=== PATIENT | male | born 1975 | race Two or more races ===

== ENCOUNTER 2018-07-30 17:03 | Emergency (ER) | payer MEDICARE, MEDICAID ==
--- NOTE | 2018-07-30 17:11 | ER Report ---
History and Physical Time Seen By MD: 17:11 HPI/ROS CHIEF COMPLAINT: Alcoholism, abdominal pain HISTORY OF PRESENT ILLNESS: 42-year-old male patient presents to emergency room with complaint of alcoholism. Patient states he is looking to be admitted to behavioral health unit as he can work on quitting drinking his alcohol. Patient states he's done this in the past and the longest that he was sober was for years. He states that he started drinking again because of his at that time. Patient states that he has been having epigastric abdominal pain for the past 2 and half days. States the pain is significant in the upper abdomen. Patie nt states the pain is almost intolerable. He states that he is not been able to do anything to make the pain better or worse. Patient states he's been drinking heavily for the past several months. REVIEW OF SYSTEMS: Respiratory: No cough, no dyspnea. Cardiovascular: No chest pain, no palpitations. Gastrointestinal: As noted above Musculoskeletal: No back pain. Allergies: Coded Allergies: No Known Drug Allergies (Unverified , 07/31/18) Per patient Home Meds Reported Medications Melatonin (MELATONIN) 2.5 Mg Tab.chew, 2.5 MG PO QPM, TAB.CHEW prn 07/31/18 Ascorbic Acid/Multivit-Min (Emergen-C 1,000 mg Packet) 1,000 Mg Effpowdpkt, 1000 MG PO QAM 07/31/18 Multivitamin With Minerals (MEN'S ONE DAILY) 1 Each Tablet, 1 EACH PO QDAY 07/31/18 Discontinued Reported Medications Melatonin/Pyridoxine (MELATONIN 5 MG TABLET) 1 Each Tablet, 1 EACH PO QPM PRN for prn 07/31/18 Past Medical/Surgical History Patient has a past medical history of migraines, fractures, substance abuse, alcohol abuse, depression. Patient has a surgical history of appendectomy, Patient has a family medical history of cancer. Reviewed Nurses Notes: Yes Constitutional Vital Sign - Last 24 Hours 07/30/18 07/30/18 07/30/18 07/30/18 17:10 17:23 17:30 17:35 Temp 98.0 Pulse 108 116 Resp 18 B/P (MAP) 167/87 (113) 146/104 (118) 167/87 Pulse Ox 96 95 O2 Delivery Room Air 07/30/18 07/30/18 07/30/18 07/30/18 17:43 18:30 18:43 18:48 Pulse 101 98 97 B/P (MAP) 143/103 (116) Pulse Ox 89 86 85 07/30/18 07/30/18 07/30/18 07/30/18 18:52 19:00 19:03 19:18 Pulse 99 107 B/P (MAP) ???/??? (1665) Pulse Ox 97 94 O2 Flow Rate 2.0 07/30/18 07/30/18 07/30/18 07/30/18 19:30 19:33 19:48 20:00 Pulse 109 94 B/P (MAP) ???/??? (1665) 135/79 (97) Pulse Ox 96 98 07/30/18 07/30/18 07/30/18 07/30/18 20:03 20:18 20:30 20:33 Pulse 88 117 81 B/P (MAP) 128/85 (99) Pulse Ox 94 78 86 07/30/18 07/30/18 07/30/18 07/30/18 20:38 20:53 21:00 21:08 Pulse 92 ? B/P (MAP) 107/67 (80) Pulse Ox 65 07/30/18 07/30/18 07/30/18 07/30/18 21:23 21:30 21:38 21:53 Pulse ? B/P (MAP) 111/70 (84) 07/30/18 22:00 B/P (MAP) 130/92 (105) Intake and Output 07/30/18 07/30/18 07/31/18 15:00 23:00 07:00 Intake Total 1000 ml Balance 1000 ml Physical Exam General Appearance: The patient is alert, has no immediate need for airway protection and no current signs of toxicity. Respiratory: Chest is non tender, lungs are clear to auscultation. Cardiac: regular rate and rhythm Gastrointestinal: Abdomen is soft and tender to palpation in the epigastric and bilateral upper quadrants, no masses, bowel sounds normal. Musculoskeletal: Neck: Neck is supple and non tender. Extremities have full range of motion and are non tender. Skin: No rashes or lesions. Psych: Patient varies in his mood, sometimes to be tearful, other times he will be normal. Patient does have slurred speech and does smell of alcohol. Patient does maintain good eye contact. DIFFERENTIAL DIAGNOSIS: After history and physical exam differential diagnosis was considered for depression, alcohol abuse, delusions of grandeur, and abdominal pain including but not limited to appendicitis, cholecystitis, gastritis and urinary tract infection. I do have concerns about possible pancreatitis. Medical Decision Making Data Points Result Diagram: 07/30/18 1726 07/30/18 1726 Laboratory Hematology Test 07/30/18 17:26 07/30/18 22:10 Red Blood Count 5.27 M/uL (4.00-5.60) Mean Corpuscular Volume 87.5 fL (80.0-96.0) Mean Corpuscular Hemoglobin 28.3 pg (26.0-33.0) Mean Corpuscular Hemoglobin Concent 32.4 g/dL (32.0-36.0) Red Cell Distribution Width 16.4 % (11.5-14.5) Mean Platelet Volume 7.5 fL (7.2-11.1) Neutrophils (%) (Auto) 82.3 % (39.4-72.5) Lymphocytes (%) (Auto) 10.1 % (17.6-49.6) Monocytes (%) (Auto) 7.0 % (4.1-12.4) Eosinophils (%) (Auto) 0.1 % (0.4-6.7) Basophils (%) (Auto) 0.5 % (0.3-1.4) Nucleated RBC Relative Count (auto) 0.0 /100WBC Neutrophils # (Auto) 11.2 K/uL (2.0-7.4) Lymphocytes # (Auto) 1.4 K/uL (1.3-3.6) Monocytes # (Auto) 1.0 K/uL (0.3-1.0) Eosinophils # (Auto) 0.0 K/uL (0.0-0.5) Basophils # (Auto) 0.1 K/uL (0.0-0.1) Nucleated RBC Absolute Count (auto) 0.00 K/uL Sodium Level 143 mmol/L (137-145) Potassium Level 3.5 mmol/L (3.5-5.0) Chloride Level 110 mmol/L (98-107) Carbon Dioxide Level 22 mmol/L (22-30) Blood Urea Nitrogen 20 mg/dl (9-21) Creatinine 1.20 mg/dl (0.66-1.25) Glomerular Filtration Rate Calc > 60.0 Random Glucose 140 mg/dl (75-110) Calcium Level 8.4 mg/dl (8.4-10.2) Magnesium Level 2.0 mg/dl (1.7-2.2) Total Bilirubin 0.6 mg/dl (0.2-1.3) Aspartate Amino Transf (AST/SGOT) 63 U/L (0-35) Alanine Aminotransferase (ALT/SGPT) 52 U/L (0-56) Alkaline Phosphatase 71 U/L (0-126) Total Protein 7.1 g/dl (6.3-8.2) Albumin 4.1 g/dl (3.5-5.0) Amylase Level 52 U/L (0-110) Lipase 128 U/L (23-300) Thyroid Stimulating Hormone (TSH) 1.11 uIU/ml (0.46-4.68) Salicylates Level < 10 mg/L Salicylate Last Dose Date unk Acetaminophen Level < 10 ug/ml Serum Alcohol 376 mg/dl Urine Color Yellow Urine Clarity Clear Urine pH 6.0 pH (4.8-9.5) Urine Specific Bloomer 1.046 Urine Protein Negative mg/dL (NEGATIVE) Urine Glucose (UA) Negative mg/dL (NEGATIVE) Urine Ketones 20 mg/dL (NEGATIVE) Urine Blood Negative (NEGATIVE) Urine Nitrite Negative (NEGATIVE) Urine Bilirubin Negative (NEGATIVE) Urine Urobilinogen Negative mg/dL (0.2-1.9) Urine Leukocyte Esterase Negative (NEGATIVE) Urine RBC <1 /HPF (0-2/HPF) Urine WBC 1 /HPF (0-5/HPF) Urine Squamous Epithelial Cells Few /LPF (</=FEW) Urine Bacteria Negative /HPF (NONE-FEW) Urine Mucus None /HPF (NONE-FEW) Urine Opiates Screen Negative Urine Barbiturates Screen Negative Ur Tricyclic Antidepressants Screen Negative Urine Phencyclidine Screen Negative Urine Amphetamines Screen Negative Urine Benzodiazepines Screen Negative Urine Cocaine Screen Negative Urine Cannabinoids Screen Negative Chemistry Test 07/30/18 17:26 07/30/18 22:10 White Blood Count 13.6 k/uL (4.5-11.0) Red Blood Count 5.27 M/uL (4.00-5.60) Hemoglobin 14.9 g/dL (14.0-18.0) Hematocrit 46.1 % (42.0-52.0) Mean Corpuscular Volume 87.5 fL (80.0-96.0) Mean Corpuscular Hemoglobin 28.3 pg (26.0-33.0) Mean Corpuscular Hemoglobin Concent 32.4 g/dL (32.0-36.0) Red Cell Distribution Width 16.4 % (11.5-14.5) Platelet Count 201 K/uL (150-450) Mean Platelet Volume 7.5 fL (7.2-11.1) Neutrophils (%) (Auto) 82.3 % (39.4-72.5) Lymphocytes (%) (Auto) 10.1 % (17.6-49.6) Monocytes (%) (Auto) 7.0 % (4.1-12.4) Eosinophils (%) (Auto) 0.1 % (0.4-6.7) Basophils (%) (Auto) 0.5 % (0.3-1.4) Nucleated RBC Relative Count (auto) 0.0 /100WBC Neutrophils # (Auto) 11.2 K/uL (2.0-7.4) Lymphocytes # (Auto) 1.4 K/uL (1.3-3.6) Monocytes # (Auto) 1.0 K/uL (0.3-1.0) Eosinophils # (Auto) 0.0 K/uL (0.0-0.5) Basophils # (Auto) 0.1 K/uL (0.0-0.1) Nucleated RBC Absolute Count (auto) 0.00 K/uL Glomerular Filtration Rate Calc > 60.0 Calcium Level 8.4 mg/dl (8.4-10.2) Magnesium Level 2.0 mg/dl (1.7-2.2) Total Bilirubin 0.6 mg/dl (0.2-1.3) Aspartate Amino Transf (AST/SGOT) 63 U/L (0-35) Alanine Aminotransferase (ALT/SGPT) 52 U/L (0-56) Alkaline Phosphatase 71 U/L (0-126) Total Protein 7.1 g/dl (6.3-8.2) Albumin 4.1 g/dl (3.5-5.0) Amylase Level 52 U/L (0-110) Lipase 128 U/L (23-300) Thyroid Stimulating Hormone (TSH) 1.11 uIU/ml (0.46-4.68) Salicylates Level < 10 mg/L Salicylate Last Dose Date unk Acetaminophen Level < 10 ug/ml Serum Alcohol 376 mg/dl Urine Color Yellow Urine Clarity Clear Urine pH 6.0 pH (4.8-9.5) Urine Specific Bloomer 1.046 Urine Protein Negative mg/dL (NEGATIVE) Urine Glucose (UA) Negative mg/dL (NEGATIVE) Urine Ketones 20 mg/dL (NEGATIVE) Urine Blood Negative (NEGATIVE) Urine Nitrite Negative (NEGATIVE) Urine Bilirubin Negative (NEGATIVE) Urine Urobilinogen Negative mg/dL (0.2-1.9) Urine Leukocyte Esterase Negative (NEGATIVE) Urine RBC <1 /HPF (0-2/HPF) Urine WBC 1 /HPF (0-5/HPF) Urine Squamous Epithelial Cells Few /LPF (</=FEW) Urine Bacteria Negative /HPF (NONE-FEW) Urine Mucus None /HPF (NONE-FEW) Urine Opiates Screen Negative Urine Barbiturates Screen Negative Ur Tricyclic Antidepressants Screen Negative Urine Phencyclidine Screen Negative Urine Amphetamines Screen Negative Urine Benzodiazepines Screen Negative Urine Cocaine Screen Negative Urine Cannabinoids Screen Negative Toxicology Test 07/30/18 17:26 07/30/18 22:10 Salicylates Level < 10 mg/L Salicylate Last Dose Date unk Acetaminophen Level < 10 ug/ml Serum Alcohol 376 mg/dl Urine Opiates Screen Negative Urine Barbiturates Screen Negative Ur Tricyclic Antidepressants Screen Negative Urine Phencyclidine Screen Negative Urine Amphetamines Screen Negative Urine Benzodiazepines Screen Negative Urine Cocaine Screen Negative Urine Cannabinoids Screen Negative Urinalysis Test 07/30/18 22:10 Urine Color Yellow Urine Clarity Clear Urine pH 6.0 pH (4.8-9.5) Urine Specific Bloomer 1.046 Urine Protein Negative mg/dL (NEGATIVE) Urine Glucose (UA) Negative mg/dL (NEGATIVE) Urine Ketones 20 mg/dL (NEGATIVE) Urine Blood Negative (NEGATIVE) Urine Nitrite Negative (NEGATIVE) Urine Bilirubin Negative (NEGATIVE) Urine Urobilinogen Negative mg/dL (0.2-1.9) Urine Leukocyte Esterase Negative (NEGATIVE) Urine RBC <1 /HPF (0-2/HPF) Urine WBC 1 /HPF (0-5/HPF) Urine Squamous Epithelial Cells Few /LPF (</=FEW) Urine Bacteria Negative /HPF (NONE-FEW) Urine Mucus None /HPF (NONE-FEW) EKG/Imaging Imaging COMPUTED TOMOGRAPHY OF THE Abdomen and Pelvis without CONTRAST INDICATION: Epigastric abdominal pain.. TECHNIQUE: Contiguous axial 3.[address] images were obtained through the abdomen and pelvis without contrast. Coronal and sagittal reformatted images were submitted. COMPARISON: Unremarkable. FINDINGS: Lung bases: The lung bases are clear. Liver and hepatic vasculature: Liver parenchymal density is markedly decreased diffusely. No ascites. Gallbladder and bile ducts: Normal Spleen: Normal Pancreas: Blurred by motion but unremarkable. Adrenals: Normal Kidneys, ureters and bladder: No obstruction. No stone. Normal-appearing bladder. Retroperitoneum and aorta: Normal caliber aorta. GI tract, mesentery and peritoneum: Small to moderate sized hiatal hernia. No bowel obstruction. No free fluid or free air. Surgically absent appendix. No findings of diverticulitis. Prostate: Unremarkable. Bones and soft tissues: No acute osseous abnormality. IMPRESSION: 1. Imaging is degraded by motion. 2. No clear evidence of acute intra-abdominal abnormality. 3. Marked hepatic steatosis. 4. Small to moderate-sized hiatal hernia. 5. Surgically absent appendix. One of the following dose optimization techniques was utilized in the performance of this exam: Automated exposure control; adjustment of the mA and/or kV according to the patient's size; or use of an iterative reconstruction technique. Specific details can be referenced in the facility's radiology CT exam operational policy. Report Dictated By: Deandra Montes MD at 07/30/2018 6:24 PM Report E-Signed By: Deandra Montes MD at 07/30/2018 6:33 PM ED Course/Re-evaluation ED Course Patient was admitted to exam room, history and physical were obtained. Different ial diagnoses were considered. On examination lungs are clear, heart is regular, abdomen is soft and tender especially in the epigastric region. Lab work for a behavioral health admission were done. I also included an amylase and lipase as well as concerned about possible pancreatitis. The lab work was unremarkable, although the patient did have an elevated blood alcohol of 376. A CT scan of abdomen and pelvis was done which showed no acute findings. I discussed the case with Dr. Crouch, psychiatrist, who agreed to accept the patient for admission. We did have difficult time getting a urine on the patient. Since we have the IV in place with go ahead and give 2 L of normal saline. Patient was able to give us urine sample and was admitted to the behavioral health unit. Decision to Disposition Date: Jul 30, 2018 Decision to Disposition Time: 19:27 Depart Departure Latest Vital Signs Vital Signs Date Time Temp Pulse Resp B/P (MAP) Pulse Ox O2 Delivery O2 Flow Rate FiO2 07/30/18 22:00 130/92 (105) 07/30/18 21:53 ??? 07/30/18 20:38 65 07/30/18 18:52 2.0 07/30/18 17:35 98.0 18 Room Air Impression: Primary Impression: Alcohol abuse Additional Impression: Depression Condition: Condition Unchanged Disposition: XFER TO [facility] Problem Qualifiers Additional Impression: Depression Depression Type: major depressive disorder Major depression recurrence: recurrent Active/Remission status: currently active Major depression episode severity: moderate Qualified Codes: F33.1 - Major depressive disorder, recurrent, moderate RUBY CHANCE Jul 30, 2018 17:11
[2018-07-30] MEDS ORDERED: MAG HYD/AL HYD/SIMETH 30ML UDC PO ONE (17:25)
[2018-07-30] MEDS ORDERED: LIDOCAINE 2% VISC SLN 15ML UDC PO ONE (17:25)
[2018-07-30 17:31] LABS: PLATELET COUNT, AUTOMATED 201 K/uL (150-450)
[2018-07-30] MEDS ORDERED: KETOROLAC 15 MG/ML VIAL IVP ONE ×2 (18:25→20:25)
--- NOTE | 2018-07-30 18:37 | RADIOLOGY IMAGING REPORT ---
[place] [facility] [place] Luis Resendez : 1975 MR: [id number] V: [id number] EXAM DATE: ORDERING PHYSICIAN: RUBY CHANCE TECHNOLOGIST: Location: [facility] [place] Patient: Luis Resendez : 1975 Visit/Account:[id number] Date of Sevice: 07/30/2018 COMPUTED TOMOGRAPHY OF THE Abdomen and Pelvis without CONTRAST INDICATION: Epigastric abdominal pain.. TECHNIQUE: Contiguous axial 3.[address] images were obtained through the abdomen and pelvis without co ntrast. Coronal and sagittal reformatted images were submitted. COMPARISON: Unremarkable. FINDINGS: Lung bases: The lung bases are clear. Liver and hepatic vasculature: Liver parenchymal density is markedly decreased diffusely. No ascite s. Gallbladder and bile ducts: Normal Spleen: Normal Pancreas: Blurred by motion but unremarkable. Adrenals: Normal Kidneys, ureters and bladder: No obstruction. No stone. Normal-appearing bladder. Retroperitoneum and aorta: Normal caliber aorta. GI tract, mesentery and peritoneum: Small to moderate sized hiatal hernia. No bowel obstruction. No free fluid or free air. Surgically absent appendix. No findings of diverticulitis. Prostate: Unremarkable. Bones and soft tissues: No acute osseous abnormality. IMPRESSION: 1. Imaging is degraded by motion. 2. No clear evidence of acute intra-abdominal abnormality. 3. Marked hepatic steatosis. 4. Small to moderate-sized hiatal hernia. 5. Surgically absent appendix. One of the following dose optimization techniques was utilized in the performance of this exam: Autom ated exposure control; adjustment of the mA and/or kV according to the patient's size; or use of an i terative reconstruction technique. Specific details can be referenced in the facility's radiology C T exam operational policy. Report Dictated By: Deandra Montes MD at 07/30/2018 6:24 PM Report E-Signed By: Deandra Montes MD at 07/30/2018 6:33 PM WSN:[id number]
[2018-07-30] MEDS ORDERED: NS(*) 0.9% 1000 ML BAG 1,000 ML IV ONE ×2 (19:45→21:15)
[2018-07-30] MEDS ORDERED: ONDANSETRON 4 MG/2 ML VIAL IVP ONE (20:15)
[2018-07-30 22:00] VITALS: BP 130/92
[2018-07-31] MEDS ORDERED: MELA1TAB15 PO (11:31)
[2018-07-31] MEDS ORDERED: [UNRECOGNIZED DRUG - CODE] PO (11:31)
[2018-07-31] MEDS ORDERED: MULT-1167 PO (11:31)
[2018-07-31] MEDS ORDERED: MELA2.5T PO (11:32)
== END 2018-07-30 23:08 ==
LOC: ER 17:20
DX: F10.229 Alcohol dependence with intoxication, unspecified (principal); Y90.8 Blood alcohol level of 240 mg/100 ml or more; R10.10 Upper abdominal pain, unspecified; F33.1 Major depressive disorder, recurrent, moderate; R10.13 Epigastric pain
CPT/HCPCS: 74177; 80305; 81001; 82150; 83690; 83735; 84443; 85025; 96361; 96374; 96375; 96376; 99284; A9270; G0480; J1885; J2405; J7030; 80320; 80329; 82040; 82247; 82310; 82374; 82435; 82565; 82947; 84075; 84132; 84155; 84295; 84450; 84460; 84520

== ENCOUNTER 2018-07-30 21:13 | Inpatient (IN) | payer MEDICARE, MEDICAID ==
[~2018-07-30] VITALS: Ht 172.7 cm; Wt 97.5 kg
[2018-07-30 23:20] VITALS: BP 134/102
[2018-07-30] MEDS: DIAZEPAM 10 MG TAB PO PRN (23:28)
[2018-07-31] MEDS: DIAZEPAM 10 MG TAB PO PRN ×10 (00:22→22:21)
[2018-07-31 06:00] VITALS: BP 112/79
[2018-07-31] MEDS ORDERED: KETOROLAC TROM 10MG TAB PO ONE (08:00)
[2018-07-31 08:42] LABS: PLATELET COUNT, AUTOMATED 106 K/uL (150-450)
[2018-07-31] MEDS: MULTIVITAMINS TAB PO SCH (09:31)
[2018-07-31] MEDS: FOLIC ACID 1 MG TAB PO SCH (09:31)
[2018-07-31] MEDS: THIAMINE HCL 100 MG TAB PO SCH (09:31)
[2018-07-31] MEDS: MAG HYD/AL HYD/SIMETH 30ML UDC PO PRN (09:31)
[2018-07-31 10:20] VITALS: BP 130/98
[2018-07-31] MEDS ORDERED: MELA1TAB15 PO (11:31)
[2018-07-31] MEDS ORDERED: [UNRECOGNIZED DRUG - CODE] PO (11:31)
[2018-07-31] MEDS ORDERED: MULT-1167 PO (11:31)
[2018-07-31] MEDS ORDERED: MELA2.5T PO (11:32)
[2018-07-31] MEDS: PANTOPRAZOLE SOD 20 MG TABEC PO SCH (11:36)
[2018-07-31] MEDS ORDERED: KETOROLAC TROM 10MG TAB PO PRN (14:00)
[2018-07-31 15:20] VITALS: BP 158/98
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
[2018-07-31] MEDS: ONDANSETRON 4 MG ODT TABDP SL PRN (17:41)
[2018-07-31 18:25] VITALS: BP 142/94
[2018-07-31 22:10] VITALS: BP 127/89
[2018-08-01 07:55] VITALS: BP 110/82
[2018-08-01] MEDS: DIAZEPAM 10 MG TAB PO PRN ×2 (08:15→13:03)
[2018-08-01] MEDS: PANTOPRAZOLE SOD 20 MG TABEC PO SCH (08:15)
[2018-08-01] MEDS: FOLIC ACID 1 MG TAB PO SCH (08:15)
[2018-08-01] MEDS: MULTIVITAMINS TAB PO SCH (08:15)
[2018-08-01] MEDS: THIAMINE HCL 100 MG TAB PO SCH (08:15)
[2018-08-01 12:50] VITALS: BP 128/78
--- NOTE | 2018-08-01 13:41 | BHS Progress Note ---
[facility] - Subjective Progress Notes Subjective Pt seen in treatment team with his present by speaker phone. Pt has received a total of 250 mg of valium as of 1:30 pm today. His scores are decreasing today, with a 9 this am and a 10 this afternoon. No evidence of delirium. He and were asking questions about his history of mood disorder and insomnia. He will likely need to go back on seroquel for sleep and mood stability, and then follow up as outpatient for further eval of mood disorder after he is sober for a while. Continue [facility] protocol. Suicidal Ideation: None Homicidal Ideation: None [facility] - Objective Physical Exam Vital Signs Vital Signs 08/01/18 12:50 Temp 98.2 Pulse 98 Resp 18 B/P (MAP) 128/78 (95) Pulse Ox 95 O2 Delivery Room Air Muscle Strength and Tone: WNL Gait and Station: Steady [facility] Medications Reviewed: Side Effects, Benefits of Medication, Risks Allergies Reviewed: Yes Mental Status Exam General Appearance: Casual, Well Groomed, Good Eye Contact, Cooperative, Polite, Good Interaction, Tearful Speech: Clear, Spontaneous, Normal Rate, Normal Rhythm, Normal Volume, Normal Tone Mood: Dysthmic/Depressed Affect: Calm, Sad Thought Process: Organized, Logical, Goal Directed Thought Content: No Suicidal Ideation, No Homicidal Ideation, No Delusions, No Auditory Halllucinations, No Visual Hallucinations, No Thought Broadcasting, No Ideas of Reference, No Obsessions, No Compulsions, No Other Sensorium: Clear Cognition: Alert & Oriented-Person, Alert & Oriented-Place, Alert & Oriented- Time, [id number] Memory: Immediate, Recent, Remote Intelligence: Average Insight Judgment: Fair Result Diagram: 07/31/18 0836 07/31/18 0836 [facility] Assessment and Plan [id number] Encounter Date: Aug 01, 2018 [id number] Encounter Time: 10:30 [facility] Plan: Admit to Unit, Necessary Precautions, Individual/Group Therapy, Admin/Titrate Meds, Educate Patient Tobacco Medications: Not Appropriate Condition Multpiple Antipsychotics Used: No Problems: (1) Alcohol use disorder, severe, dependence (2) Alcohol withdrawal (3) Unspecified mood [affective] disorder BERNARDO GARCIA MD Aug 01, 2018 13:41
[2018-08-01 17:00] VITALS: BP 118/90
[2018-08-01] MEDS: QUEtiapine FUM 100 MG TAB PO SCH (20:54)
[2018-08-01] MEDS ORDERED: DIAZEPAM 10 MG TAB PO ONE (21:00)
[2018-08-01 21:12] VITALS: BP 117/74
[2018-08-02] MEDS: DIAZEPAM 10 MG TAB PO PRN ×3 (06:07→17:12)
[2018-08-02 06:52] VITALS: BP 132/93
[2018-08-02] MEDS: FOLIC ACID 1 MG TAB PO SCH (09:32)
[2018-08-02] MEDS: PANTOPRAZOLE SOD 20 MG TABEC PO SCH (09:32)
[2018-08-02] MEDS: THIAMINE HCL 100 MG TAB PO SCH (09:32)
[2018-08-02] MEDS: MULTIVITAMINS TAB PO SCH (09:32)
[2018-08-02 09:35] VITALS: BP 124/82
[2018-08-02] MEDS: ONDANSETRON 4 MG ODT TABDP SL PRN (09:35)
[2018-08-02] MEDS ORDERED: PROMETHAZINE HCL 25 MG TAB PO PRN (11:00)
--- NOTE | 2018-08-02 12:23 | BHS Progress Note ---
S - Subjective Progress Notes Subjective "I'm nauseous and still have a tremor. I don't think Zofran works and the Valium has worn off." Interviewed in room due to nausea, has received >250 mg of Valium now CIWA scores decreasing. No evidence of delirium, history of mood disorder and insomnia Rate depression/anxiety and anger 12/31, cooperative w/interview Suicidal Ideation: None Homicidal Ideation: None S - Objective Physical Exam Vital Signs Vital Signs Date Time Temp Pulse Resp B/P (MAP) Pulse Ox O2 Delivery O2 Flow Rate FiO2 08/02/18 09:35 97.7 79 18 124/82 (96) 93 Room Air Deferred Medications (Trade) Dose Ordered Sig/Brooks Route PRN Reason Start Time Stop Time Status Last Admin Dose Admin Al Hydrox/Mg Hydrox/Simethicone (Maalox(*) 30 ml Udcup (Or Equiv)) 30 ml Q4H PRN PO DYSPEPSIA 07/30/18 22:20 08/29/18 22:19 07/31/18 09:31 Diazepam (Valium(*) 10 Mg Tab (Or Equiv)) 10 mg ONCE ONCE PO 08/01/18 21:00 08/01/18 21:02 DC 08/01/18 20:54 Folic Acid (Folic Acid (*) 1 Mg Tab) 1 mg QDAY PO 07/31/18 09:00 08/30/18 08:59 08/02/18 09:32 Ketorolac Tromethamine (Toradol (*) 10 Mg Tab (Or Equiv)) 20 mg ONCE ONCE PO 07/31/18 08:00 07/31/18 08:03 DC 07/31/18 08:08 Multivitamins (Thera-M Enhanced Tab (Or Equiv)) 1 each QDAY PO 07/31/18 09:00 08/30/18 08:59 08/02/18 09:32 Ondansetron HCl (Zofran(*) 4 Mg Odt(Or Equiv)) 4 mg Q6H PRN SL NAUSEA/VOMITING 07/31/18 06:15 08/02/18 11:01 DC 08/02/18 09:35 Pantoprazole Sodium (Protonix (Or Equiv)) 20 mg QDAY PO 07/31/18 11:00 08/30/18 10:59 08/02/18 09:32 Promethazine HCl (Phenergan HCl (*) 25 Mg Tab (Or Equiv)) 25 mg Q6H PRN PO NAUSEA 08/02/18 11:00 09/01/18 10:59 08/02/18 11:22 Quetiapine Fumarate (SEROquel 100 MG TAB (OR EQUIV)) 100 mg QHS PO 08/01/18 21:00 08/31/18 20:59 08/01/18 20:54 Thiamine HCl (Vitamin B-1(*) 100 Mg Tab (Or Equiv)) 100 mg QDAY PO 07/31/18 09:00 08/30/18 08:59 08/02/18 09:32 Muscle Strength and Tone: WNL Gait and Station: Steady [facility] Medications Reviewed: Side Effects, Benefits of Medication, Risks Allergies Reviewed: Yes Mental Status Exam General Appearance: Casual, Well Groomed, Good Eye Contact, Cooperative, Polite, Good Interaction; No Tearful Speech: Clear, Spontaneous, Normal Rate, Normal Rhythm, Normal Volume, Normal Tone Mood: Dysthmic/Depressed Affect: Calm, Sad Thought Process: Organized, Logical, Goal Directed Thought Content: No Suicidal Ideation, No Homicidal Ideation, No Delusions, No Auditory Halllucinations, No Visual Hallucinations, No Thought Broadcasting, No Ideas of Reference, No Obsessions, No Compulsions, No Other Sensorium: Clear Cognition: Alert & Oriented-Person, Alert & Oriented-Place, Alert & Oriented- Time, Puvxc-Phugvwwr-Lbzjqbhzq Memory: Immediate, Recent, Remote Intelligence: Average Insight Judgment: Fair Result Diagram: 07/31/18 0836 07/31/18 0836 [facility] Assessment and Plan Tggy-[id number] Encounter Date: Aug 02, 2018 Isaj-ha-Ixrq Encounter Time: 11:05 [facility] Plan: Admit to Unit, Necessary Precautions, Individual/Group Therapy, Admin/Titrate Meds, Educate Patient Tobacco Medications: Not Appropriate Condition Multpiple Antipsychotics Used: No Problems: (1) Alcohol withdrawal Status: Acute (2) Unspecified mood [affective] disorder Status: Chronic (3) Alcohol use disorder, severe, dependence Status: Chronic Condition Continue [facility] protocol Trial Phenergan for nausea LENORA MENJIVAR NP Aug 02, 2018 12:23
[2018-08-02 16:25] VITALS: BP 124/84
[2018-08-02 20:30] VITALS: BP 131/93
[2018-08-02] MEDS ORDERED: DIAZEPAM 10 MG TAB PO ONE (21:00)
[2018-08-02] MEDS: QUEtiapine FUM 100 MG TAB PO SCH (21:05)
[2018-08-03 05:46] VITALS: BP 119/77
[2018-08-03 08:00] VITALS: BP 138/92
[2018-08-03] MEDS: DIAZEPAM 5 MG TAB PO SCH ×2 (08:30→20:25)
[2018-08-03] MEDS: MULTIVITAMINS TAB PO SCH (08:30)
[2018-08-03] MEDS: THIAMINE HCL 100 MG TAB PO SCH (08:30)
[2018-08-03] MEDS: FOLIC ACID 1 MG TAB PO SCH (08:30)
[2018-08-03] MEDS: PANTOPRAZOLE SOD 20 MG TABEC PO SCH (08:30)
--- NOTE | 2018-08-03 11:50 | BHS Progress Note ---
S - Subjective Progress Notes Subjective "The Seroquel works well for me. Drinking doesn't work for me, I never meant to cause destruction. Once I put it in me, I enjoy it for about 30 minutes but it's like a blackout and I don't want to be one of those statistics." Alcohol withdrawal nearing completion, ambulating and tolerating po intake without nausea Denies racing thoughts, sleep remains variable, will place pulse oximetry tonight Denies depression, anxiety or anger Reports period of sobriety x 4 years with use of working AA program, began drinking again 2015, "I got away from meetings." Suicidal Ideation: None Homicidal Ideation: None S - Objective Physical Exam Vital Signs Allergies Coded Allergies No Known Drug Allergies (Unverified07/31/18) Per patient Deferred Laboratory Tests 07/31/18 08:36 Laboratory Tests 07/31/18 08:36: White Blood Count 5.2, Red Blood Count 4.20, Hemoglobin 12.1, Hematocrit 36.8, Mean Corpuscular Volume 87.6, Mean Corpuscular Hemoglobin 28.8, Mean Corpuscular Hemoglobin Concent 32.9, Red Cell Distribution Width 16.5, Platelet Count 106, Mean Platelet Volume 7.2, Neutrophils (%) (Auto) 71.1, Lymphocytes (%) (Auto) 20.0, Monocytes (%) (Auto) 7.9, Eosinophils (%) (Auto) 0.7, Basophils (%) (Auto) 0.3, Nucleated RBC Relative Count (auto) 0.0, Neutrophils # (Auto) 3.7, L ymphocytes # (Auto) 1.0, Monocytes # (Auto) 0.4, Eosinophils # (Auto) 0.0, Basophils # (Auto) 0.0, Nucleated RBC Absolute Count (auto) 0.00, Sodium Level 141, Potassium Level 3.5, Chloride Level 113, Carbon Dioxide Level 24, Blood Urea Nitrogen 12, Creatinine 0.80, Glomerular Filtration Rate Calc > 60.0, Random Glucose 80, Calcium Level 7.4, Magnesium Level 1.6, Total Bilirubin 0.7, Aspartate Amino Transf (AST/SGOT) 47, Alanine Aminotransferase (ALT/SGPT) 47, Alkaline Phosphatase 51, Total Protein 5.4, Albumin 2.9, Amylase Level < 30, Lipase 91 Medications (Trade) Dose Ordered Sig/Brooks Route PRN Reason Start Time Stop Time Status Last Admin Dose Admin Al Hydrox/Mg Hydrox/Simethicone (Maalox(*) 30 ml Udcup (Or Equiv)) 30 ml Q4H PRN PO DYSPEPSIA 07/30/18 22:20 08/29/18 22:19 07/31/18 09:31 Diazepam (Valium(*) 10 Mg Tab (Or Equiv)) 10 mg ONCE ONCE PO 08/02/18 21:00 08/02/18 21:01 DC 08/02/18 21:06 Diazepam (Valium(*) 5 Mg Tab (Or Equiv)) 5 mg BID PO 08/03/18 09:00 08/04/18 08:59 08/03/18 08:30 Folic Acid (Folic Acid (*) 1 Mg Tab) 1 mg QDAY PO 07/31/18 09:00 08/30/18 08:59 08/03/18 08:30 Ketorolac Tromethamine (Toradol (*) 10 Mg Tab (Or Equiv)) 20 mg ONCE ONCE PO 07/31/18 08:00 07/31/18 08:03 DC 07/31/18 08:08 Multivitamins (Thera-M Enhanced Tab (Or Equiv)) 1 each QDAY PO 07/31/18 09:00 08/30/18 08:59 08/03/18 08:30 Ondansetron HCl (Zofran(*) 4 Mg Odt(Or Equiv)) 4 mg Q6H PRN SL NAUSEA/VOMITING 07/31/18 06:15 08/02/18 11:01 DC 08/02/18 09:35 Pantoprazole Sodium (Protonix (Or Equiv)) 20 mg QDAY PO 07/31/18 11:00 08/30/18 10:59 08/03/18 08:30 Promethazine HCl (Phenergan HCl (*) 25 Mg Tab (Or Equiv)) 25 mg Q6H PRN PO NAUSEA 08/02/18 11:00 09/01/18 10:59 08/02/18 11:22 Quetiapine Fumarate (SEROquel 100 MG TAB (OR EQUIV)) 100 mg QHS PO 08/01/18 21:00 08/31/18 20:59 08/02/18 21:05 Thiamine HCl (Vitamin B-1(*) 100 Mg Tab (Or Equiv)) 100 mg QDAY PO 07/31/18 09:00 08/30/18 08:59 08/03/18 08:30 Muscle Strength and Tone: WNL Gait and Station: Steady [facility] Medications Reviewed: Side Effects, Benefits of Medication, Risks Allergies Reviewed: Yes Mental Status Exam General Appearance: Casual, Well Groomed, Good Eye Contact, Cooperative, Polite, Good Interaction; No Tearful Speech: Clear, Spontaneous, Normal Rate, Normal Rhythm, Normal Volume, Normal Tone Mood: Dysthmic/Depressed (rates depression and anxiety 12/31) Affect: Full and Appropriate, Calm, Sad Thought Process: Organized, Logical, Goal Directed Thought Content: No Suicidal Ideation, No Homicidal Ideation, No Delusions, No Auditory Halllucinations, No Visual Hallucinations, No Thought Broadcasting, No Ideas of Reference, No Obsessions, No Compulsions, No Other Sensorium: Clear Cognition: Alert & Oriented-Person, Alert & Oriented-Place, Alert & Oriented- Time, Ksstf-Qspgzflr-Dttzimjru Memory: Immediate, Recent, Remote Intelligence: Average Insight Judgment: Fair Result Diagram: 07/31/1836 07/31/18835 [facility] Assessment and Plan Hdui-vu-Geop Encounter Date: Aug 03, 2018 Ttmr-zx-[id number] Encounter Time: 11:45 [facility] Plan: Admit to Unit, Necessary Precautions, Individual/Group Therapy, Admin/Titrate Meds, Educate Patient Tobacco Medications: Not Appropriate Condition Multpiple Antipsychotics Used: No Problems: (1) Alcohol withdrawal Status: Acute (2) Unspecified mood [affective] disorder Status: Chronic (3) Alcohol use disorder, severe, dependence Status: Chronic Condition Increase Quetiapine to 150mg po every pm, pulse oximetry tonight Continue CIWA protocol Encourage AA, [facility] Treatment team 08/04 LENORA MENJIVAR NP Aug 03, 2018 11:50
[2018-08-03 12:05] VITALS: BP 134/98
[2018-08-03] MEDS: DIAZEPAM 10 MG TAB PO PRN (12:18)
[2018-08-03] MEDS: QUEtiapine FUM 100 MG TAB PO SCH (20:25)
[2018-08-03 23:08] VITALS: BP 128/88
[2018-08-04 05:24] VITALS: BP 136/96
[2018-08-04] MEDS: MULTIVITAMINS TAB PO SCH (08:48)
[2018-08-04] MEDS: THIAMINE HCL 100 MG TAB PO SCH (08:48)
[2018-08-04] MEDS: PANTOPRAZOLE SOD 20 MG TABEC PO SCH (08:48)
[2018-08-04] MEDS: FOLIC ACID 1 MG TAB PO SCH (08:48)
[2018-08-04 11:26] VITALS: BP 132/98
--- NOTE | 2018-08-04 14:15 | BHS Progress Note ---
S - Subjective Progress Notes Subjective Pt seen in treatment team with his attending. Pt says he is feeling better today, but that he did have withdrawal symptoms yesterday and was medicated with 20 mg of valium per the [facility] protocol (along with 5 mg BID standing dose yesterday to wean him since he had required high doses of valium for the detox). So we informed him that it would not be safe to discharge today-- he needs at least 24 hours free of valium. He and discussed his history with mood sx's, with drinking, and with AA. Pt got tearful as he talked about the two men from who came up to visit him yesterday-- he said tears of relief that he will have good people supporting him after discharge, since they gave him their phone numbers and offered him rides to meetings. Pt slept well last night with seroquel 150 mg, so will continue that dose. He will work on recovery modules in therapy today, and also build a wellness and recovery plan, and tentative discharge tomorrow. Suicidal Ideation: None Homicidal Ideation: None [facility] - Objective Physical Exam Vital Signs Vital Signs 08/03/18 08/04/18 12:05 11:26 Temp 97.9 Pulse 96 Resp 18 B/P (MAP) 132/98 (109) Pulse Ox 96 O2 Delivery Room Air Muscle Strength and Tone: WNL Gait and Station: Steady [facility] Medications Reviewed: Side Effects, Benefits of Medication, Risks Allergies Reviewed: Yes Mental Status Exam General Appearance: Casual, Well Groomed, Good Eye Contact, Cooperative, Polite, Good Interaction, Tearful ("tears of gratitude") Speech: Clear, Spontaneous, Normal Rate, Normal Rhythm, Normal Volume, Normal Tone Mood: Dysthmic/Depressed (rates depression and anxiety 12/31) Affect: Full and Appropriate, Calm, Sad Thought Process: Organized, Logical, Goal Directed Thought Content: No Suicidal Ideation, No Homicidal Ideation, No Delusions, No Auditory Halllucinations, No Visual Hallucinations, No Thought Broadcasting, No Ideas of Reference, No Obsessions, No Compulsions, No Other Sensorium: Clear Cognition: Alert & Oriented-Person, Alert & Oriented-Place, Alert & Oriented- Time, Akvyu-Wwxijcfq-Gvtthobzn Memory: Immediate, Recent, Remote Intelligence: Average Insight Judgment: Fair Result Diagram: 07/31/18 0836 07/31/1836 [facility] Assessment and Plan Vulo-jw-Gjvq Encounter Date: Aug 04, 2018 Bbkh-hc-[id number] Encounter Time: 10:40 [facility] Plan: Admit to Unit, Necessary Precautions, Individual/Group Therapy, Adm in/Titrate Meds, Educate Patient Tobacco Medications: Not Appropriate Condition Multpiple Antipsychotics Used: No Problems: (1) Alcohol use disorder, severe, dependence Status: Chronic (2) Alcohol withdrawal Status: Acute (3) Unspecified mood [affective] disorder Status: Chronic BERNARDO GARCIA MD Aug 04, 2018 14:15
[2018-08-04 15:25] VITALS: BP 130/85
[2018-08-04 19:46] VITALS: BP 140/95
[2018-08-04] MEDS: QUEtiapine FUM 100 MG TAB PO SCH (21:23)
[2018-08-05 06:06] VITALS: BP 116/77
[2018-08-05] MEDS: MAG HYD/AL HYD/SIMETH 30ML UDC PO PRN (06:30)
[2018-08-05] MEDS: PANTOPRAZOLE SOD 20 MG TABEC PO SCH (08:26)
[2018-08-05] MEDS: FOLIC ACID 1 MG TAB PO SCH (08:26)
[2018-08-05] MEDS: THIAMINE HCL 100 MG TAB PO SCH (08:27)
[2018-08-05] MEDS: MULTIVITAMINS TAB PO SCH (08:27)
[2018-08-05] MEDS ORDERED: QUET50TA21 PO (09:13)
--- NOTE | 2018-08-05 12:03 | BHS Discharge Summary ---
[facility] Discharge Summary Edaq-df-Qxbc Encounter Date: Aug 05, 2018 Utnj-vy-Yhfj Encounter Time: 08:00 Reason-Hosp/Final Diag (DSM-V): (1) Alcohol use disorder, severe, dependence Status: Chronic Hospital Course & Plan: HISTORY OF PRESENT ILLNESS This is the fifth ever psychiatric admission for this 42-year-old man who is here as a voluntary admission and who has a history of alcohol use disorder as well as bipolar disorder. The patient says that he and his family, including his and five children, moved to [place] a month ago, but he had started drinking back in May after his stepfather , followed two weeks later by his biological father. He has now been drinking up to three pints a day of gin. He says he has been having blackouts every night. He says he has been extremely irritable, grouchy, sleeping poorly, and waking up with the shakes. He does have a history of previous admissions for detox. He has had a history of withdrawal delirium including visual and auditory hallucinations, and he thinks he may have had a history of withdrawal seizures back in 2004. In the Emergency Room, the patient's blood alcohol was 376. He was cooperative with the admission process. The patient denies any recent suicidal ideation. He reports overall good health other than drinking. HOSPITAL COURSE He was admittted to [facility] and detoxed from alcohol using the CIWA protocol with valium. Withdrawal was treated to completion after a total or 300 mg of valium over 5 days. There were no complications. He participated actively in his treatment and was at all times pleasant and cooperative. He attended groups and did education modules regarding substance abuse. Two AA members came to the unit and met with him, which he found very supportive. His participated in our treatment team meetings and she was very warm and supportive. By the day of discharge he had been free of any valium for just over 24 hours. He will follow up at [facility] for outpatient therapy and medication management. He will attend daily AA meetings. (2) Alcohol withdrawal Status: Acute (3) Unspecified mood [affective] disorder Status: Chronic Hospital Course & Plan: Pt reported history of previous diagnosis of unspecified bipolar disorder. He mentioned that during his 4 years of sobriety he was being maintained on lithium 900 mg per day and seroquel 200 mg q HS. He felt these meds were very helpful. He did report history of mood swings but n ever clear history of euphoric roger-- mostly swings from depression to extreme anger. Also history of profound insomnia, racing thoughts. We restarted seroquel 150 mg at bedtime during the last 3 nights of his hospital stay and he found it very helpful for sleep. We recommended that he follow up with the psychiatrist at [facility], and over time, as he stays sober, they can monitor mood, clarify diagnosis, and decide if he will benefit from additional mood stabilizer. (4) Nocturnal hypoxia Hospital Course & Plan: We did place a nocturnal pulse ox, the results appeared borderline to me. He has been referred to Dr. Ferreira and appointment is scheduled for . Pt was given a copy of his nocturnal pulse ox results for Dr. Ferreira to review. Mental Status Exam General Appearance: Casual, Well Groomed, Good Eye Contact, Cooperative, Polite, Good Interaction Speech: Clear, Spontaneous, Normal Rate, Normal Rhythm, Normal Volume, Normal Tone Mood: Euthymic Affect: Full and Appropriate, Calm Thought Process: Organized, Logical, Goal Directed Thought Content: No Suicidal Ideation, No Homicidal Ideation, No Delusions, No Auditory Halllucinations, No Visual Hallucinations, No Thought Broadcasting, No Ideas of Reference, No Obsessions, No Compulsions, No Other Sensorium: Clear Cognition: Alert & Oriented-Person, Alert & Oriented-Place, Alert & Oriented- Time, Twxqg-Qzqnebhl-Ulgvnxfmg Memory: Immediate, Recent, Remote Intelligence: Average Insight Judgment: Good Departure Result Diagram: 07/31/18 0836 07/31/18835 Item Value Date Time Urine Color Yellow 07/30/182209 Urine Clarity Clear 07/30/182209 Urine pH 6.0 pH 07/30/182209 Urine Specific [place] 1.046 07/30/182209 Urine Protein Negative mg/dL 07/30/182209 Urine Glucose (UA) Negative mg/dL 07/30/182209 Urine Ketones 20 mg/dL H 07/30/182209 Urine Blood Negative 07/30/182209 Urine Nitrite Negative 07/30/182209 Urine Bilirubin Negative 07/30/182209 Urine Urobilinogen Negative mg/dL 2/6/19 2210 Urine Leukocyte Esterase Negative 07/30/182209 Urine RBC <1 /HPF 07/30/182209 Urine WBC 1 /HPF 07/30/180 Urine Squamous Epithelial Cells Few /LPF 07/30/182209 Urine Bacteria Negative /HPF 07/30/182209 Urine Mucus None /HPF 07/30/182209 Item Value Date Time Sodium Level 141 mmol/L 07/31/18 0836 Potassium Level 3.5 mmol/L 07/31/18 0836 Chloride Level 113 mmol/L H 07/31/18 0836 Carbon Dioxide Level 24 mmol/L 07/31/18 0836 Blood Urea Nitrogen 12 mg/dl 07/31/18 0836 Creatinine 0.80 mg/dl 07/31/18 0836 Glomerular Filtration Rate Calc > 60.0 07/31/18 0836 Random Glucose 80 mg/dl 07/31/18 0836 Calcium Level 7.4 mg/dl L 07/31/18 0836 Magnesium Level 1.6 mg/dl L 07/31/18 0836 Total Bilirubin 0.7 mg/dl 07/31/18 0836 Aspartate Amino Transf (AST/SGOT) 47 U/L H 07/31/18 0836 Alanine Aminotransferase (ALT/SGPT) 47 U/L 07/31/18 0836 Alkaline Phosphatase 51 U/L 07/31/18 0836 Total Protein 5.4 g/dl L 07/31/18 0836 Albumin 2.9 g/dl L 07/31/18 0836 Amylase Level < 30 U/L 07/31/18 0836 Lipase 91 U/L 07/31/18 0836 Thyroid Stimulating Hormone (TSH) 1.11 uIU/ml 07/30/18 1726 Item Value Date Time Salicylates Level < 10 mg/L 07/30/18 1726 Salicylate Last Dose Date unk 07/30/18 1726 Urine Opiates Screen Negative 07/30/18 2210 Acetaminophen Level < 10 ug/ml 07/30/18 1726 Urine Barbiturates Screen Negative 07/30/18 2210 Ur Tricyclic Antidepressants Screen Negative 07/30/182209 Urine Phencyclidine Screen Negative 07/30/18 2210 Urine Amphetamines Screen Negative 07/30/18 2210 Urine Benzodiazepines Screen Negative 07/30/18 221 Urine Cocaine Screen Negative 07/30/182209 Urine Cannabinoids Screen Negative 07/30/182209 Serum Alcohol 376 mg/dl *H 07/30/18 1726 Item Value Date Time White Blood Count 5.2 k/uL 07/31/18 0836 Hemoglobin 12.1 g/dL L 07/31/18 0836 Hematocrit 36.8 % L 07/31/18 0836 Platelet Count 106 K/uL L 07/31/18 0836 Mean Corpuscular Volume 87.6 fL 07/31/1836 Red Blood Count 4.20 M/uL 07/31/18 0836 Mean Corpuscular Hemoglobin 28.8 pg 07/31/18 0836 Mean Corpuscular Hemoglobin Concent 32.9 g/dL 07/31/18 0836 Red Cell Distribution Width 16.5 % H 07/31/18 08 Mean Platelet Volume 7.2 fL 07/31/18 0836 Condition: Improved Discharge to: Home Discharge Instructions Home Meds Reported Medications Quetiapine Fumarate (SEROQUEL) 50 Mg Tablet, 150 MG PO QHS 08/05/18 Ascorbic Acid/Multivit-Min (Emergen-C 1,000 mg Packet) 1,000 Mg Effpowdpkt, 1000 MG PO QAM 07/31/18 Multivitamin With Minerals (MEN'S ONE DAILY) 1 Each Tablet, 1 EACH PO QDAY 07/31/18 Discontinued Reported Medications Melatonin (MELATONIN) 2.5 Mg Tab.chew, 2.5 MG PO QPM, TAB.CHEW prn 07/31/18 Melatonin/Pyridoxine (MELATONIN 5 MG TABLET) 1 Each Tablet, 1 EACH PO QPM PRN for prn 07/31/18 Multpiple Antipsychotics Used: No Diet: Regular Activity: As Tolerated Special Instructions: Take medications as prescribed. Follow up with outpatient provider for medication management. Follow up with outpatient therapy. Abstain from alcohol & all illicit substances. Follow up with AA. Obtain an AA Sponsor & utilize them. Call Crisis Line should symptoms return. BERNARDO GARCIA MD Aug 05, 2018 12:03
== END 2018-08-05 10:00 | disposition home or self-care (01) | DRG 897 ==
LOC: BHS 21:13
PROVIDERS: ADMIT Psychiatry & Neurology Psychiatry; ATTEND Psychiatry & Neurology Psychiatry
DX: F10.230 Alcohol dependence with withdrawal, uncomplicated (principal); F10.24 Alcohol dependence with alcohol-induced mood disorder; G47.34 Idiopathic sleep related nonobstructive alveolar hypoventilation; Y90.8 Blood alcohol level of 240 mg/100 ml or more; Z81.1 Family history of alcohol abuse and dependence; F31.9 Bipolar disorder, unspecified; Z81.8 Family history of other mental and behavioral disorders
CPT/HCPCS: 36415; 74177; 80305; 80320; 80329; 81001; 82040; 82150; 82247; 82310; 82374; 82435; 82565; 82947; 83690; 83735; 84075; 84132; 84155; 84295; 84443; 84450; 84460; 84520; 85025; 96361; 96374; 96375; 96376; 99284; J1885; J2405; J7030; Q0169; Q9967; S0119

== ENCOUNTER 2018-08-06 13:33 | Emergency (ER) | payer MEDICARE, MEDICAID ==
[~2018-08-06 13:33] MED LIST: MELA1TAB15 PO; MELA2.5T PO; MULT-1167 PO; QUET50TA21 PO; [UNRECOGNIZED DRUG - CODE] PO
--- NOTE | 2018-08-06 13:47 | ER Report ---
History and Physical Time Seen By MD: 13:47 HPI/ROS CHIEF COMPLAINT: Alcohol detox HISTORY OF PRESENT ILLNESS: 42-year-old male patient presents to emergency room with complaint of needing to detox from alcohol. Patient was just discharged a few days ago from [facility]. He states that he got home and started feeling fearful. He states he is fearful about having to stay away from alcohol altogether. He states that made him go back and start drinking. Patient states he has had 4 bottles of gin today. Patient denies any nausea, vomiting. Patient states that he has had some struggles with the Seroquel as well. He states that he is not been able to sleep as well. They did call and speak with an industrial safety and health technician should see if he should increase to 200 mg a day but nobody would recommend that for him. Patient states he is not have chance to follow-up with AA since been discharged. Patient states he would like to be admitted back to [facility]. REVIEW OF SYSTEMS: Respiratory: No cough, no dyspnea. Cardiovascular: No chest pain, no palpitations. Gastrointestinal: No vomiting, no abdominal pain. Musculoskeletal: No back pain. Allergies: Coded Allergies: No Known Drug Allergies (Unverified , 08/06/18) Per patient Home Meds Reported Medications Quetiapine Fumarate (SEROQUEL) 50 Mg Tablet, 150 MG PO QHS 08/05/18 Ascorbic Acid/Multivit-Min (Emergen-C 1,000 mg Packet) 1,000 Mg Effpowdpkt, 1000 MG PO QAM 07/31/18 Multivitamin With Minerals (MEN'S ONE DAILY) 1 Each Tablet, 1 EACH PO QDAY 07/31/18 Discontinued Reported Medications Melatonin (MELATONIN) 2.5 Mg Tab.chew, 2.5 MG PO QPM, TAB.CHEW prn 07/31/18 Melatonin/Pyridoxine (MELATONIN 5 MG TABLET) 1 Each Tablet, 1 EACH PO QPM PRN for prn 07/31/18 Past Medical/Surgical History Patient has a past medical history of migraines, fractures, substance abuse, alcohol abuse, depression. Patient has a surgical history of appendectomy, Patient has a family medical history of cancer. Reviewed Nurses Notes: Yes Hx Smoking: Yes Smoking Status: Former Smoker Exposure to Second Hand Smoke?: No Hx Substance Use Disorder: Yes Hx Alcohol Use: Yes Constitutional Vital Sign - Last 24 Hours 08/06/18 08/06/18 08/06/18 08/06/18 13:40 13:56 14:00 14:43 Temp 98.8 Pulse 111 Resp 20 B/P (MAP) 119/95 119/95 (103) 110/89 (96) 109/82 (91) Pulse Ox 91 O2 Delivery Room Air 08/06/18 08/06/18 15:00 15:30 B/P (MAP) 114/77 (89) 123/55 (77) Physical Exam General Appearance: The patient is alert, has no immediate need for airway protection and no current signs of toxicity. Respiratory: Chest is non tender, lungs are clear to auscultation. Cardiac: regular rate and rhythm Gastrointestinal: Abdomen is soft and non tender, no masses, bowel sounds normal. Musculoskeletal: Neck: Neck is supple and non tender. Extremities have full range of motion and are non tender. Skin: No rashes or lesions. Patient does have bruises to the left side DIFFERENTIAL DIAGNOSIS: After history and physical exam differential diagnosis was considered for depression, alcohol intoxication, bipolar. Medical Decision Making Data Points Result Diagram: 08/06/18 1415 08/06/18 1415 Laboratory Hematology Test 08/06/18 14:15 08/06/18 15:40 Red Blood Count 4.68 M/uL (4.00-5.60) Mean Corpuscular Volume 89.8 fL (80.0-96.0) Mean Corpuscular Hemoglobin 28.4 pg (26.0-33.0) Mean Corpuscular Hemoglobin Concent 31.7 g/dL (32.0-36.0) Red Cell Distribution Width 17.0 % (11.5-14.5) Mean Platelet Volume 7.7 fL (7.2-11.1) Neutrophils (%) (Auto) 52.9 % (39.4-72.5) Lymphocytes (%) (Auto) 32.0 % (17.6-49.6) Monocytes (%) (Auto) 12.5 % (4.1-12.4) Eosinophils (%) (Auto) 1.6 % (0.4-6.7) Basophils (%) (Auto) 1.0 % (0.3-1.4) Nucleated RBC Relative Count (auto) 0.0 /100WBC Neutrophils # (Auto) 3.5 K/uL (2.0-7.4) Lymphocytes # (Auto) 2.1 K/uL (1.3-3.6) Monocytes # (Auto) 0.8 K/uL (0.3-1.0) Eosinophils # (Auto) 0.1 K/uL (0.0-0.5) Basophils # (Auto) 0.1 K/uL (0.0-0.1) Nucleated RBC Absolute Count (auto) 0.00 K/uL Sodium Level 144 mmol/L (137-145) Potassium Level 4.2 mmol/L (3.5-5.0) Chloride Level 113 mmol/L (98-107) Carbon Dioxide Level 20 mmol/L (22-30) Blood Urea Nitrogen 13 mg/dl (9-21) Creatinine 1.20 mg/dl (0.66-1.25) Glomerular Filtration Rate Calc > 60.0 Random Glucose 96 mg/dl (75-110) Calcium Level 8.7 mg/dl (8.4-10.2) Magnesium Level 2.1 mg/dl (1.7-2.2) Total Bilirubin 0.3 mg/dl (0.2-1.3) Aspartate Amino Transf (AST/SGOT) 282 U/L (0-35) Alanine Aminotransferase (ALT/SGPT) 256 U/L (0-56) Alkaline Phosphatase 64 U/L (0-126) Total Protein 7.6 g/dl (6.3-8.2) Albumin 4.4 g/dl (3.5-5.0) Thyroid Stimulating Hormone (TSH) 5.04 uIU/ml (0.46-4.68) Salicylates Level < 10 mg/L Salicylate Last Dose Date unk Acetaminophen Level < 10 ug/ml Serum Alcohol 330 mg/dl Urine Color Straw Urine Clarity Clear Urine pH 6.0 pH (4.8-9.5) Urine Specific [place] 1.003 Urine Protein Negative mg/dL (NEGATIVE) Urine Glucose (UA) Negative mg/dL (NEGATIVE) Urine Ketones Negative mg/dL (NEGATIVE) Urine Blood Negative (NEGATIVE) Urine Nitrite Negative (NEGATIVE) Urine Bilirubin Negative (NEGATIVE) Urine Urobilinogen Negative mg/dL (0.2-1.9) Urine Leukocyte Esterase Negative (NEGATIVE) Urine RBC <1 /HPF (0-2/HPF) Urine WBC <1 /HPF (0-5/HPF) Urine Squamous Epithelial Cells None /LPF (</=FEW) Urine Bacteria Negative /HPF (NONE-FEW) Urine Mucus None /HPF (NONE-FEW) Urine Opiates Screen Negative Urine Barbiturates Screen Negative Ur Tricyclic Antidepressants Screen Negative Urine Phencyclidine Screen Negative Urine Amphetamines Screen Negative Urine Benzodiazepines Screen Positive Urine Cocaine Screen Negative Urine Cannabinoids Screen Negative Chemistry Test 08/06/18 14:15 08/06/18 15:40 White Blood Count 6.7 k/uL (4.5-11.0) Red Blood Count 4.68 M/uL (4.00-5.60) Hemoglobin 13.3 g/dL (14.0-18.0) Hematocrit 42.0 % (42.0-52.0) Mean Corpuscular Volume 89.8 fL (80.0-96.0) Mean Corpuscular Hemoglobin 28.4 pg (26.0-33.0) Mean Corpuscular Hemoglobin Concent 31.7 g/dL (32.0-36.0) Red Cell Distribution Width 17.0 % (11.5-14.5) Platelet Count 159 K/uL (150-450) Mean Platelet Volume 7.7 fL (7.2-11.1) Neutrophils (%) (Auto) 52.9 % (39.4-72.5) Lymphocytes (%) (Auto) 32.0 % (17.6-49.6) Monocytes (%) (Auto) 12.5 % (4.1-12.4) Eosinophils (%) (Auto) 1.6 % (0.4-6.7) Basophils (%) (Auto) 1.0 % (0.3-1.4) Nucleated RBC Relative Count (auto) 0.0 /100WBC Neutrophils # (Auto) 3.5 K/uL (2.0-7.4) Lymphocytes # (Auto) 2.1 K/uL (1.3-3.6) Monocytes # (Auto) 0.8 K/uL (0.3-1.0) Eosinophils # (Auto) 0.1 K/uL (0.0-0.5) Basophils # (Auto) 0.1 K/uL (0.0-0.1) Nucleated RBC Absolute Count (auto) 0.00 K/uL Glomerular Filtration Rate Calc > 60.0 Calcium Level 8.7 mg/dl (8.4-10.2) Magnesium Level 2.1 mg/dl (1.7-2.2) Total Bilirubin 0.3 mg/dl (0.2-1.3) Aspartate Amino Transf (AST/SGOT) 282 U/L (0-35) Alanine Aminotransferase (ALT/SGPT) 256 U/L (0-56) Alkaline Phosphatase 64 U/L (0-126) Total Protein 7.6 g/dl (6.3-8.2) Albumin 4.4 g/dl (3.5-5.0) Thyroid Stimulating Hormone (TSH) 5.04 uIU/ml (0.46-4.68) Salicylates Level < 10 mg/L Salicylate Last Dose Date unk Acetaminophen Level < 10 ug/ml Serum Alcohol 330 mg/dl Urine Color Straw Urine Clarity Clear Urine pH 6.0 pH (4.8-9.5) Urine Specific [place] 1.003 Urine Protein Negative mg/dL (NEGATIVE) Urine Glucose (UA) Negative mg/dL (NEGATIVE) Urine Ketones Negative mg/dL (NEGATIVE) Urine Blood Negative (NEGATIVE) Urine Nitrite Negative (NEGATIVE) Urine Bilirubin Negative (NEGATIVE) Urine Urobilinogen Negative mg/dL (0.2-1.9) Urine Leukocyte Esterase Negative (NEGATIVE) Urine RBC <1 /HPF (0-2/HPF) Urine WBC <1 /HPF (0-5/HPF) Urine Squamous Epithelial Cells None /LPF (</=FEW) Urine Bacteria Negative /HPF (NONE-FEW) Urine Mucus None /HPF (NONE-FEW) Urine Opiates Screen Negative Urine Barbiturates Screen Negative Ur Tricyclic Antidepressants Screen Negative Urine Phencyclidine Screen Negative Urine Amphetamines Screen Negative Urine Benzodiazepines Screen Positive Urine Cocaine Screen Negative Urine Cannabinoids Screen Negative Toxicology Test 08/06/18 14:15 08/06/18 15:40 Salicylates Level < 10 mg/L Salicylate Last Dose Date unk Acetaminophen Level < 10 ug/ml Serum Alcohol 330 mg/dl Urine Opiates Screen Negative Urine Barbiturates Screen Negative Ur Tricyclic Antidepressants Screen Negative Urine Phencyclidine Screen Negative Urine Amphetamines Screen Negative Urine Benzodiazepines Screen Positive Urine Cocaine Screen Negative Urine Cannabinoids Screen Negative Urinalysis Test 2/13/19 15:40 Urine Color Straw Urine Clarity Clear Urine pH 6.0 pH (4.8-9.5) Urine Specific [place] 1.003 Urine Protein Negative mg/dL (NEGATIVE) Urine Glucose (UA) Negative mg/dL (NEGATIVE) Urine Ketones Negative mg/dL (NEGATIVE) Urine Blood Negative (NEGATIVE) Urine Nitrite Negative (NEGATIVE) Urine Bilirubin Negative (NEGATIVE) Urine Urobilinogen Negative mg/dL (0.2-1.9) Urine Leukocyte Esterase Negative (NEGATIVE) Urine RBC <1 /HPF (0-2/HPF) Urine WBC <1 /HPF (0-5/HPF) Urine Squamous Epithelial Cells None /LPF (</=FEW) Urine Bacteria Negative /HPF (NONE-FEW) Urine Mucus None /HPF (NONE-FEW) ED Course/Re-evaluation ED Course Patient was admitted to an exam room, history and physical were obtained. Differential diagnoses were considered. On examination lungs are clear, heart is regular, abdomen is soft and nontender. Lab work for a [facility] admission were done. Patient had elevated AST and ALT, blood alcohol 3:30. Patient is acting more intoxicated than he was last seen in 6 days ago. I believe that he could very well be going up on his blood alcohol. Drug screen was positive for benzodiazepines. Urinalysis was unremarkable. I discussed the case with Dr. Crouch, psychiatrist, who agreed to accept the patient for admission. Patient was getting slightly anxious here in the emergency room and so I did give him 10 mg of IV Valium. Patient did sign in voluntarily for admission to [facility]. I discussed admission and he verbalized understanding and agreement. Decision to Disposition Date: Aug 06, 2018 Decision to Disposition Time: 16:13 Depart Departure Latest Vital Signs Vital Signs Date Time Temp Pulse Resp B/P (MAP) Pulse Ox O2 Delivery O2 Flow Rate FiO2 08/06/18 15:30 123/55 (77) 08/06/18 13:40 98.8 111 20 91 Room Air Impression: Primary Impression: Alcohol use disorder, severe, dependence Additional Impression: Depression Condition: Condition Unchanged Disposition: XFER TO [facility] Problem Qualifiers Additional Impression: Depression Depression Type: major depressive disorder Major depression recurrence: recurrent Active/Remission status: currently active Major depression episode severity: moderate Qualified Codes: F33.1 - Major depressive disorder, recurrent, moderate RUBY CHANCE Aug 06, 2018 13:47
[2018-08-06] MEDS ORDERED: NS(*) 0.9% 1000 ML BAG 1,000 ML IV ONE (14:20)
[2018-08-06 14:22] LABS: PLATELET COUNT, AUTOMATED 159 K/uL (150-450)
[2018-08-06 15:30] VITALS: BP 123/55
[2018-08-06] MEDS ORDERED: DIAZEPAM 50 MG/10 ML MDV IVP ONE (16:05)
== END 2018-08-06 16:51 ==
LOC: ER 13:43
DX: F10.20 Alcohol dependence, uncomplicated (principal); F33.1 Major depressive disorder, recurrent, moderate
CPT/HCPCS: 36415; 80305; 81001; 83735; 84443; 85025; 96361; 96374; 99284; G0480; J3360; J7030; 80320; 80329; 82040; 82247; 82310; 82374; 82435; 82565; 82947; 84075; 84132; 84155; 84295; 84450; 84460; 84520

== ENCOUNTER 2018-08-06 16:25 | Inpatient (IN) | payer MEDICARE, MEDICAID ==
[~2018-08-06] VITALS: Ht 182.9 cm; Wt 104.3 kg
[2018-08-06] MEDS ORDERED: PROMETHAZINE HCL 25 MG TAB PO PRN (16:55)
[2018-08-06 18:00] VITALS: BP 134/97
[2018-08-06] MEDS: QUEtiapine FUM 25 MG TAB PO PRN (18:41)
[2018-08-06] MEDS: DIAZEPAM 10 MG TAB PO PRN ×3 (18:41→20:51)
[2018-08-06] MEDS: QUEtiapine FUM 100 MG TAB PO SCH (20:52)
[2018-08-06 23:00] VITALS: BP 110/75
[2018-08-07] MEDS: PANTOPRAZOLE SOD 20 MG TABEC PO SCH (08:16)
[2018-08-07] MEDS: MULTIVITAMINS PO SCH (08:16)
[2018-08-07] MEDS: THIAMINE HCL 100 MG TAB PO SCH (08:16)
[2018-08-07] MEDS: FOLIC ACID 1 MG TAB PO SCH (08:16)
[2018-08-07] MEDS: QUEtiapine FUM 25 MG TAB PO PRN (10:25)
[2018-08-07 10:47] VITALS: BP 151/105
[2018-08-07] MEDS: DIAZEPAM 10 MG TAB PO PRN ×4 (11:07→22:01)
[2018-08-07 16:47] VITALS: BP 140/104
[2018-08-07 19:10] VITALS: BP 118/94
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
[2018-08-07] MEDS: QUEtiapine FUM 100 MG TAB PO SCH (21:21)
[2018-08-08 05:35] VITALS: BP 112/74
[2018-08-08] MEDS: THIAMINE HCL 100 MG TAB PO SCH (08:01)
[2018-08-08] MEDS: PANTOPRAZOLE SOD 20 MG TABEC PO SCH (08:01)
[2018-08-08] MEDS: MULTIVITAMINS PO SCH (08:01)
[2018-08-08] MEDS: FOLIC ACID 1 MG TAB PO SCH (08:01)
[2018-08-08] MEDS ORDERED: DIAZEPAM 10 MG TAB PO ONE ×2 (09:30→21:00)
[2018-08-08] MEDS: DIAZEPAM 10 MG TAB PO PRN (13:10)
--- NOTE | 2018-08-08 13:20 | BHS Progress Note ---
[facility] - Subjective Progress Notes Subjective Pt seen in treatment team with his present. Pt still experiencing some withdrawal sx's, scored a 10 this am on CIWA, had total [id number] valium over his first 24 hours. Will medicate with 10 mg valium BID today at minimum, plus will still monitor CIWA scores and medicate accordingly, lisa since pt has hx of withdrawal delerium and seizure in past. We discussed his hx of bipolar spectrum symptoms and we will go ahead and get him back on both seroquel and lithium to give him best chance at remaining mood stable as he pursues rehab treatment. He has been on lithium before, aware of risks of toxicity, renal and thyroid effects. is very supportive. Hoping for transfer to [facility] next week. Suicidal Ideation: None Homicidal Ideation: None [facility] - Objective Physical Exam Vital Signs Vital Signs 08/08/18 05:35 Temp 98.3 Pulse 79 Resp 14 B/P (MAP) 112/74 (87) Pulse Ox 93 O2 Delivery Room Air Muscle Strength and Tone: WNL Gait and Station: Steady [facility] Medications Reviewed: Side Effects, Benefits of Medication, Risks Allergies Reviewed: Yes Mental Status Exam General Appearance: Casual, Well Groomed, Good Eye Contact, Cooperative, Polite, Good Interaction, Tearful Speech: Clear, Spontaneous, Normal Rate, Normal Rhythm, Normal Volume, Normal Tone Mood: Dysthmic/Depressed Affect: Calm, Sad Thought Process: Organized, Logical, Goal Directed Thought Content: No Suicidal Ideation, No Homicidal Ideation, No Delusions, No Auditory Halllucinations, No Visual Hallucinations, No Thought Broadcasting, No Ideas of Reference, No Obsessions, No Compulsions, No Other Sensorium: Clear Cognition: Alert & Oriented-Person, Alert & Oriented-Place, Alert & Oriented- Time, [id number] Memory: Immediate, Recent, Remote Intelligence: Average Insight Judgment: Fair [facility] Assessment and Plan [id number] Encounter Date: Aug 08, 2018 [id number] Encounter Time: 09:00 [facility] Plan: Admit to Unit, Necessary Precautions, Individual/Group Therapy, Admin/Titrate Meds, Educate Patient Tobacco Medications: Not Appropriate Condition Multpiple Antipsychotics Used: No Problems: (1) Alcohol use disorder, severe, dependence Status: Chronic (2) Unspecified mood [affective] disorder Status: Chronic (3) Alcohol withdrawal Status: Acute GARCIA,BERNARDO MD Aug 08, 2018 13:20
[2018-08-08] MEDS: MAG HYD/AL HYD/SIMETH 30ML UDC PO PRN (15:05)
[2018-08-08 15:10] VITALS: BP 128/94
[2018-08-08 19:20] VITALS: BP 140/102
[2018-08-08] MEDS: LITHIUM CARBONATE 450 MG TABCR PO SCH (21:09)
[2018-08-08] MEDS: QUEtiapine FUM 100 MG TAB PO SCH (21:09)
[2018-08-09] MEDS: FOLIC ACID 1 MG TAB PO SCH (08:21)
[2018-08-09] MEDS: PANTOPRAZOLE SOD 20 MG TABEC PO SCH (08:21)
[2018-08-09] MEDS: MULTIVITAMINS PO SCH (08:21)
[2018-08-09] MEDS: THIAMINE HCL 100 MG TAB PO SCH (08:21)
--- NOTE | 2018-08-09 09:19 | BHS Progress Note ---
[facility] - Subjective Progress Notes Subjective "I'm feeling better, a little jittery and a little anxious which how I usually feel when I stop drinking." Discussed his thought process regarding choices for residential treatment. He is discussing with his . Rates anxiety and 8 today, depression/guilt a 6. He denies SI. Suicidal Ideation: None Homicidal Ideation: None [facility] - Objective Physical Exam Vital Signs Vital Signs 08/08/18 19:20 Temp 98.1 Pulse 102 Resp 20 B/P (MAP) 140/102 (115) Pulse Ox 95 O2 Delivery Room Air Muscle Strength and Tone: WNL Gait and Station: Steady [facility] Medications Reviewed: Side Effects, Benefits of Medication, Risks Allergies Reviewed: Yes Mental Status Exam General Appearance: Casual, Well Groomed, Good Eye Contact, Cooperative, Polite, Good Interaction, Tearful Speech: Clear, Spontaneous, Normal Rate, Normal Rhythm, Normal Volume, Normal Tone Mood: Dysthmic/Depressed Affect: Calm, Sad Thought Process: Organized, Logical, Goal Directed Thought Content: No Suicidal Ideation, No Homicidal Ideation, No Delusions, No Auditory Halllucinations, No Visual Hallucinations, No Thought Broadcasting, No Ideas of Reference, No Obsessions, No Compulsions, No Other Sensorium: Clear Cognition: Alert & Oriented-Person, Alert & Oriented-Place, Alert & Oriented- Time, [id number]-[id number] Memory: Immediate, Recent, Remote Intelligence: Average Insight Judgment: Fair [facility] Assessment and Plan [id number] Encounter Date: Aug 09, 2018 Oqni-or-Woeg Encounter Time: 09:00 [facility] Plan: Admit to Unit, Necessary Precautions, Individual/Group Therapy, Admin /Titrate Meds, Educate Patient Tobacco Medications: Not Appropriate Condition Multpiple Antipsychotics Used: No Problems: (1) Alcohol abuse Status: Acute (2) Alcohol withdrawal Status: Acute (3) Unspecified mood [affective] disorder Status: Chronic (4) Alcohol use disorder, severe, dependence Status: Chronic MIGUEL JOHNSON NP Aug 09, 2018 09:19
[2018-08-09 10:40] VITALS: BP 124/82
[2018-08-09 14:30] VITALS: BP 124/86
[2018-08-09 19:20] VITALS: BP 127/83
[2018-08-09] MEDS: QUEtiapine FUM 100 MG TAB PO SCH (20:59)
[2018-08-09] MEDS: LITHIUM CARBONATE 450 MG TABCR PO SCH (20:59)
[2018-08-10 05:58] VITALS: BP 114/81
[2018-08-10] MEDS: PANTOPRAZOLE SOD 20 MG TABEC PO SCH (08:35)
[2018-08-10] MEDS: FOLIC ACID 1 MG TAB PO SCH (08:35)
[2018-08-10] MEDS: MULTIVITAMINS PO SCH (08:35)
[2018-08-10] MEDS: THIAMINE HCL 100 MG TAB PO SCH (08:35)
[2018-08-10] MEDS: QUEtiapine FUM 25 MG TAB PO PRN (08:41)
--- NOTE | 2018-08-10 11:59 | BHS Progress Note ---
[facility] - Subjective Progress Notes Subjective "Me and my are praying and researching what is going to be the best treatment options for me and for my family." Today client is reporting he is not wanting to take the bed at [facility] and that he is looking at alternatives. Suicidal Ideation: None Homicidal Ideation: None [facility] - Objective Physical Exam Vital Signs Vital Signs Date Time Temp Pulse Resp B/P (MAP) Pulse Ox O2 Delivery O2 Flow Rate FiO2 08/10/18 05:58 97.4 97 16 114/81 (92) 97 Room Air Muscle Strength and Tone: WNL Gait and Station: Steady [facility] Medications Reviewed: Side Effects, Benefits of Medication, Risks Allergies Reviewed: Yes Mental Status Exam General Appearance: Casual, Well Groomed, Good Eye Contact, Cooperative, Polite, Good Interaction, Tearful Speech: Clear, Spontaneous, Normal Rate, Normal Rhythm, Normal Volume, Normal Tone Mood: Dysthmic/Depressed Affect: Calm, Sad Thought Process: Organized, Logical, Goal Directed Thought Content: No Suicidal Ideation, No Homicidal Ideation, No Delusions, No Auditory Halllucinations, No Visual Hallucinations, No Thought Broadcasting, No Ideas of Reference, No Obsessions, No Compulsions, No Other Sensorium: Clear Cognition: Alert & Oriented-Person, Alert & Oriented-Place, Alert & Oriented- Time, Lzvmi-[id number]-Dcyyntyba Memory: Immediate, Recent, Remote Intelligence: Average Insight Judgment: Fair [facility] Assessment and Plan [id number] Encounter Date: Aug 10, 2018 [id number] Encounter Time: 10:30 [facility] Plan: Admit to Unit, Necessary Precautions, Individual/Group Therapy, Admin/Titrate Meds, Educate Patient Tobacco Medications: Not Appropriate Condition Multpiple Antipsychotics Used: No Problems: (1) Alcohol abuse Status: Acute (2) Alcohol withdrawal Status: Resolved (3) Unspecified mood [affective] disorder Status: Chronic (4) Alcohol use disorder, severe, dependence Status: Chronic Problem Qualifiers (1) Alcohol withdrawal: Complication of substance-induced condition: uncomplicated Qualified Codes: F10.230 - Alcohol dependence with withdrawal, uncomplicated MIGUEL JOHNSON NP Aug 10, 2018 11:59
[2018-08-10 12:20] VITALS: BP 128/86
[2018-08-10] MEDS: MAG HYD/AL HYD/SIMETH 30ML UDC PO PRN (16:30)
[2018-08-10 19:40] VITALS: BP 140/102
[2018-08-10] MEDS: QUEtiapine FUM 100 MG TAB PO SCH (20:35)
[2018-08-10] MEDS ORDERED: IBUPROFEN 800 MG TAB PO PRN (20:45)
[2018-08-10] MEDS ORDERED: LITHIUM CARBONATE 450 MG TABCR PO SCH (21:00)
[2018-08-11 06:05] VITALS: BP 130/94
[2018-08-11] MEDS: MULTIVITAMINS PO SCH (08:00)
[2018-08-11] MEDS: FOLIC ACID 1 MG TAB PO SCH (08:00)
[2018-08-11] MEDS: PANTOPRAZOLE SOD 20 MG TABEC PO SCH (08:00)
[2018-08-11] MEDS: THIAMINE HCL 100 MG TAB PO SCH (08:00)
--- NOTE | 2018-08-11 11:44 | BHS Discharge Summary ---
[facility] Discharge Summary Elom-it-Ocmw Encounter Date: Aug 11, 2018 Urhy-es-Jnfk Encounter Time: 09:00 Reason-Hosp/Final Diag (DSM-V): (1) Alcohol use disorder, severe, dependence Status: Chronic Hospital Course & Plan: CHIEF COMPLAINT "It didn't work out very well." HISTORY OF PRESENT ILLNESS This is a voluntary admission for this 42-year-old male who had one prior [facility] admission just having been discharged on 08/05/18 after an alcohol detox. He went home and almost immediately relapsed and presented back to the Emergency Room on August 06 requesting readmission. In the ER, his blood alcohol level was 330. He was readmitted to [facility] to detox again. This time, he is agreeing that he would like to be transferred directly to an inpatient rehab facility. The patient has had a history of withdrawal delirium in the past and also has had a history of withdrawal seizures in the past, although his most recent detox here at [facility] was uncomplicated. PAST PSYCHIATRIC HISTORY He has a diagnosis of bipolar disorder and was stable for about four years, taking Seroquel 200 mg every night and lithium 300 mg three times per day. When he was on these medications, this coincides with the four years during which he was sober from alcohol and attending AA regularly. He has a history of four previous psychiatric admissions for dual diagnoses in [place], [place], where he was living. He denies any history of suicide attempt. He is not currently in outpatient treatment. HOSPITAL COURSE Pt was admitted to [facility] and detoxed as per [facility] protocol using valium. Detox was uncomplicated. We spent a lot of time with pt and with his talking about rehab options. Ultimately they decided that he would discharge home to attend [facility] at [place] and daily AA meetings. We did restart his mood stabilizers, lithium 900 mg q HS, and seroquel 200 mg q HS, and these were well tolerated. He and noted improved mood with less irritability and less impulsivity. His TSH was barely elevated at 5.03, and he will follow up with outpt provider, tsh will be monitored anyway as part of lithium therapy. He was pleasant, cooperative, and took a very active role in his treatment. He was discharged in stable and improved condition. (2) Unspecified mood [affective] disorder Status: Chronic (3) Alcohol withdrawal Status: Resolved Mental Status Exam General Appearance: Casual, Well Groomed, Good Eye Contact, Cooperative, Polite, Good Interaction Speech: Clear, Spontaneous, Normal Rate, Normal Rhythm, Normal Volume, Normal Tone Mood: Euthymic Affect: Full and Appropriate, Calm Thought Process: Organized, Logical, Goal Directed Thought Content: No Suicidal Ideation, No Homicidal Ideation, No Delusions, No Auditory Halllucinations, No Visual Hallucinations, No Thought Broadcasting, No Ideas of Reference, No Obsessions, No Compulsions, No Other Sensorium: Clear Cognition: Alert & Oriented-Person, Alert & Oriented-Place, Alert & Oriented- Time, Iixkg-Zfsydlvj-Zezsiudkl Memory: Immediate, Recent, Remote Intelligence: Average Insight Judgment: Good Departure Item Value Date Time White Blood Count 6.7 k/uL 08/06/18 1415 Red Blood Count 4.68 M/uL 08/06/18 1415 Hemoglobin 13.3 g/dL L 08/06/18 1415 Hematocrit 42.0 % 08/06/18 1415 Mean Corpuscular Volume 89.8 fL 08/06/18 1415 Mean Corpuscular Hemoglobin 28.4 pg 08/06/18 1415 Mean Corpuscular Hemoglobin Concent 31.7 g/dL L 08/06/18 1415 Red Cell Distribution Width 17.0 % H 08/06/18 1415 Platelet Count 159 K/uL 08/06/18 1415 Sodium Level 144 mmol/L 08/06/18 1415 Potassium Level 4.2 mmol/L 08/06/18 1415 Chloride Level 113 mmol/L H 08/06/18 1415 Carbon Dioxide Level 20 mmol/L L 08/06/18 1415 Blood Urea Nitrogen 13 mg/dl 08/06/18 1415 Creatinine 1.20 mg/dl 08/06/18 1415 Glomerular Filtration Rate Calc > 60.0 08/06/18 1415 Random Glucose 96 mg/dl 08/06/18 1415 Calcium Level 8.7 mg/dl 08/06/18 1415 Magnesium Level 2.1 mg/dl 08/06/18 1415 Total Bilirubin 0.3 mg/dl 08/06/18 1415 Aspartate Amino Transf (AST/SGOT) 282 U/L H 08/06/18 1415 Alanine Aminotransferase (ALT/SGPT) 256 U/L H 08/06/18 1415 Alkaline Phosphatase 64 U/L 08/06/18 1415 Total Protein 7.6 g/dl 08/06/18 1415 Albumin 4.4 g/dl 08/06/18 1415 Amylase Level < 30 U/L 07/31/18 0836 Lipase 91 U/L 07/31/18 0836 Thyroid Stimulating Hormone (TSH) 5.04 uIU/ml H 08/06/18 1415 Urine Color Straw 08/06/18 1540 Urine Clarity Clear 08/06/18 1540 Urine pH 6.0 pH 08/06/18 1540 Urine Specific [place] 1.003 08/06/18 1540 Urine Protein Negative mg/dL 08/06/18 1540 Urine Glucose (UA) Negative mg/dL 08/06/18 1540 Urine Ketones Negative mg/dL 08/06/18 1540 Urine Blood Negative 08/06/18 1540 Urine Nitrite Negative 08/06/18 1540 Urine Bilirubin Negative 08/06/18 1540 Urine Urobilinogen Negative mg/dL 08/06/18 1540 Urine Leukocyte Esterase Negative 08/06/18 1540 Urine RBC <1 /HPF 08/06/18 1540 Urine WBC <1 /HPF 08/06/18 1540 Urine Squamous Epithelial Cells None /LPF 08/06/18 1540 Urine Bacteria Negative /HPF 08/06/18 1540 Urine Mucus None /HPF 08/06/18 1540 Salicylates Level < 10 mg/L 08/06/18 1415 Salicylate Last Dose Date unk 08/06/18 1415 Urine Opiates Screen Negative 08/06/18 1540 Acetaminophen Level < 10 ug/ml 08/06/18 1415 Urine Barbiturates Screen Negative 08/06/18 1540 Ur Tricyclic Antidepressants Screen Negative 08/06/18 1540 Urine Phencyclidine Screen Negative 08/06/18 1540 Urine Amphetamines Screen Negative 08/06/18 1540 Urine Benzodiazepines Screen Positive 08/06/18 1540 Urine Cocaine Screen Negative 08/06/18 1540 Urine Cannabinoids Screen Negative 08/06/18 1540 Serum Alcohol 330 mg/dl 08/06/18 1415 Condition: Improved Discharge to: Home Discharge Instructions Home Meds Reported Medications Quetiapine Fumarate (SEROQUEL) 50 Mg Tablet, 150 MG PO QHS 08/05/18 Ascorbic Acid/Multivit-Min (Emergen-C 1,000 mg Packet) 1,000 Mg Effpowdpkt, 1000 MG PO QAM 07/31/18 Multivitamin With Minerals (MEN'S ONE DAILY) 1 Each Tablet, 1 EACH PO QDAY 07/31/18 Discontinued Reported Medications Melatonin (MELATONIN) 2.5 Mg Tab.chew, 2.5 MG PO QPM, TAB.CHEW prn 07/31/18 Multpiple Antipsychotics Used: No Diet: Regular Problem Qualifiers (1) Alcohol withdrawal: Complication of substance-induced condition: uncomplicated Qualified Codes: F10.230 - Alcohol dependence with withdrawal, uncomplicated BERNARDO GARCIA MD Aug 11, 2018 11:44
[2018-08-11] MEDS ORDERED: FOLI-68 PO (12:07)
[2018-08-11] MEDS ORDERED: LIT300CAP PO (12:07)
[2018-08-11] MEDS ORDERED: THIA100T2 PO (12:08)
[2018-08-11 13:24] VITALS: BP 140/80
[2018-08-12] MEDS ORDERED: LITHOBID PO (20:33)
== END 2018-08-11 15:40 | disposition home or self-care (01) | DRG 897 ==
LOC: BHS 16:25
PROVIDERS: ADMIT Psychiatry & Neurology Psychiatry; ATTEND Psychiatry & Neurology Psychiatry
DX: F10.230 Alcohol dependence with withdrawal, uncomplicated (principal); F39 Unspecified mood [affective] disorder; F31.9 Bipolar disorder, unspecified; Y90.8 Blood alcohol level of 240 mg/100 ml or more; Z81.1 Family history of alcohol abuse and dependence
CPT/HCPCS: 36415; 80305; 80320; 80329; 81001; 82040; 82247; 82310; 82374; 82435; 82565; 82947; 83735; 84075; 84132; 84155; 84295; 84443; 84450; 84460; 84520; 85025; 86580; 96361; 96374; 99284; J3360; J7030

== ENCOUNTER 2018-08-12 15:51 | Emergency (ER) | payer MEDICARE, MEDICAID ==
[~2018-08-12 15:51] MED LIST changes: +FOLI-68 PO; +LIT300CAP PO; +THIA100T2 PO
--- NOTE | 2018-08-12 15:56 | ER Report ---
History and Physical Time Seen By MD: 15:55 HPI/ROS CHIEF COMPLAINT: Alcohol intoxication HISTORY OF PRESENT ILLNESS: 42-year-old male was discharged from [facility] this morning for alcohol dependence. His dropped him off at the [facility] today at 10 and picked him up couple hours later at which time he admits to having drank at least a half a pint of vodka and of gin. She brings him back intoxicated, looking for alcohol detox. Patient is amenable to this as well. He denies drug use. He denies other acute symptoms. REVIEW OF SYSTEMS: Constitutional: No fever, no chills. Eyes: blurred vision ENT: No sore throat. Cardiovascular: No chest pain, no palpitations. Respiratory: No cough, no shortness of breath. Gastrointestinal: mild abdominal pain Genitourinary: no dysuria Musculoskeletal: No back pain. Skin: No rashes. Neurological: No headache. Remainder of the 14 system rev: Yes Allergies: Coded Allergies: No Known Drug Allergies (Unverified , 08/12/18) Per patient Home Meds Reported Medications Thiamine Mononitrate (VITAMIN B-1) 100 Mg Tablet, 100 MG PO DAILY 08/11/18 Folic Acid (FOLIC ACID) 1 Mg Tablet, 1 MG PO QDAY, TAB 08/11/18 [place] Carbonate (LITHIUM CARBONATE) 300 Mg Cap, 900 MG PO QHS, CAP 08/11/18 Quetiapine Fumarate (SEROQUEL) 50 Mg Tablet, 200 MG PO QHS 08/05/18 Ascorbic Acid/Multivit-Min (Emergen-C 1,000 mg Packet) 1,000 Mg Effpowdpkt, 1000 MG PO QAM 07/31/18 Multivitamin With Minerals (MEN'S ONE DAILY) 1 Each Tablet, 1 EACH PO QDAY 07/31/18 Discontinued Reported Medications Melatonin (MELATONIN) 2.5 Mg Tab.chew, 2.5 MG PO QPM, TAB.CHEW prn 07/31/18 Reviewed Nurses Notes: Yes Old Medical Records Reviewed: Yes Hx Smoking: Yes Smoking Status: Former Smoker Exposure to Second Hand Smoke?: No Hx Substance Use Disorder: Yes Hx Alcohol Use: Yes (1-1.5 gallon of Gin) Constitutional Vital Sign - Last 24 Hours 08/12/18 08/12/18 08/12/18 08/12/18 16:06 16:07 16:21 16:51 Temp 98.7 Pulse 102 97 101 Resp 16 B/P (MAP) 133/99 133/99 (110) Pulse Ox 88 88 87 O2 Delivery Room Air 08/12/18 08/12/18 08/12/18 08/12/18 17:14 17:19 17:30 17:49 Pulse 102 101 B/P (MAP) 124/93 (103) 122/90 (101) Pulse Ox 88 88 Physical Exam General Appearance: The patient is alert, has no immediate need for airway protection and no signs of toxicity. slurred speech. Eyes: Horizontal nystagmus bilaterally. ENT, Mouth: Mucous membranes are moist. Respiratory: There are no retractions, lungs are clear to auscultation. Cardiovascular: Regular rate and rhythm. Gastrointestinal: Abdomen is soft and non tender, no masses, bowel sounds normal. Neurological: awake, intoxicated Skin: Warm and dry, no rashes. Musculoskeletal: no e/o acute injuries DIFFERENTIAL DIAGNOSIS: After history and physical exam differential diagnosis was considered for alcohol intoxication, considered drug, si, organic Medical Decision Making Data Points Result Diagram: 08/12/18 1627 08/12/18 1627 Laboratory Hematology Test 08/12/18 16:27 08/12/18 17:30 Red Blood Count 4.53 M/uL (4.00-5.60) Mean Corpuscular Volume 88.9 fL (80.0-96.0) Mean Corpuscular Hemoglobin 28.7 pg (26.0-33.0) Mean Corpuscular Hemoglobin Concent 32.3 g/dL (32.0-36.0) Red Cell Distribution Width 16.5 % (11.5-14.5) Mean Platelet Volume 7.3 fL (7.2-11.1) Neutrophils (%) (Auto) 66.6 % (39.4-72.5) Lymphocytes (%) (Auto) 22.5 % (17.6-49.6) Monocytes (%) (Auto) 6.7 % (4.1-12.4) Eosinophils (%) (Auto) 1.6 % (0.4-6.7) Basophils (%) (Auto) 2.6 % (0.3-1.4) Nucleated RBC Relative Count (auto) 0.0 /100WBC Neutrophils # (Auto) 5.6 K/uL (2.0-7.4) Lymphocytes # (Auto) 1.9 K/uL (1.3-3.6) Monocytes # (Auto) 0.6 K/uL (0.3-1.0) Eosinophils # (Auto) 0.1 K/uL (0.0-0.5) Basophils # (Auto) 0.2 K/uL (0.0-0.1) Nucleated RBC Absolute Count (auto) 0.00 K/uL Peripheral Blood Smear Yes Y/N Sodium Level 145 mmol/L (137-145) Potassium Level 4.3 mmol/L (3.5-5.0) Chloride Level 111 mmol/L (98-107) Carbon Dioxide Level 24 mmol/L (22-30) Blood Urea Nitrogen 14 mg/dl (9-21) Creatinine 1.30 mg/dl (0.66-1.25) Glomerular Filtration Rate Calc 60.0 Random Glucose 82 mg/dl (75-110) Calcium Level 8.5 mg/dl (8.4-10.2) Total Bilirubin 0.2 mg/dl (0.2-1.3) Aspartate Amino Transf (AST/SGOT) 118 U/L (0-35) Alanine Aminotransferase (ALT/SGPT) 181 U/L (0-56) Alkaline Phosphatase 65 U/L (0-126) Total Protein 7.5 g/dl (6.3-8.2) Albumin 4.5 g/dl (3.5-5.0) Lipase 76 U/L (23-300) Salicylates Level < 10 mg/L Salicylate Last Dose Date unk Acetaminophen Level < 10 ug/ml Serum Alcohol 335 mg/dl Urine Color Straw Urine Clarity Clear Urine pH 6.0 pH (4.8-9.5) Urine Specific [place] 1.004 Urine Protein Negative mg/dL (NEGATIVE) Urine Glucose (UA) Negative mg/dL (NEGATIVE) Urine Ketones Negative mg/dL (NEGATIVE) Urine Blood Negative (NEGATIVE) Urine Nitrite Negative (NEGATIVE) Urine Bilirubin Negative (NEGATIVE) Urine Urobilinogen Negative mg/dL (0.2-1.9) Urine Leukocyte Esterase Negative (NEGATIVE) Urine RBC <1 /HPF (0-2/HPF) Urine WBC <1 /HPF (0-5/HPF) Urine Squamous Epithelial Cells Few /LPF (</=FEW) Urine Bacteria Negative /HPF (NONE-FEW) Urine Mucus None /HPF (NONE-FEW) Chemistry Test 08/12/18 16:27 08/12/18 17:30 White Blood Count 8.4 k/uL (4.5-11.0) Red Blood Count 4.53 M/uL (4.00-5.60) Hemoglobin 13.0 g/dL (14.0-18.0) Hematocrit 40.2 % (42.0-52.0) Mean Corpuscular Volume 88.9 fL (80.0-96.0) Mean Corpuscular Hemoglobin 28.7 pg (26.0-33.0) Mean Corpuscular Hemoglobin Concent 32.3 g/dL (32.0-36.0) Red Cell Distribution Width 16.5 % (11.5-14.5) Platelet Count 307 K/uL (150-450) Mean Platelet Volume 7.3 fL (7.2-11.1) Neutrophils (%) (Auto) 66.6 % (39.4-72.5) Lymphocytes (%) (Auto) 22.5 % (17.6-49.6) Monocytes (%) (Auto) 6.7 % (4.1-12.4) Eosinophils (%) (Auto) 1.6 % (0.4-6.7) Basophils (%) (Auto) 2.6 % (0.3-1.4) Nucleated RBC Relative Count (auto) 0.0 /100WBC Neutrophils # (Auto) 5.6 K/uL (2.0-7.4) Lymphocytes # (Auto) 1.9 K/uL (1.3-3.6) Monocytes # (Auto) 0.6 K/uL (0.3-1.0) Eosinophils # (Auto) 0.1 K/uL (0.0-0.5) Basophils # (Auto) 0.2 K/uL (0.0-0.1) Nucleated RBC Absolute Count (auto) 0.00 K/uL Peripheral Blood Smear Yes Y/N Glomerular Filtration Rate Calc 60.0 Calcium Level 8.5 mg/dl (8.4-10.2) Total Bilirubin 0.2 mg/dl (0.2-1.3) Aspartate Amino Transf (AST/SGOT) 118 U/L (0-35) Alanine Aminotransferase (ALT/SGPT) 181 U/L (0-56) Alkaline Phosphatase 65 U/L (0-126) Total Protein 7.5 g/dl (6.3-8.2) Albumin 4.5 g/dl (3.5-5.0) Lipase 76 U/L (23-300) Salicylates Level < 10 mg/L Salicylate Last Dose Date unk Acetaminophen Level < 10 ug/ml Serum Alcohol 335 mg/dl Urine Color Straw Urine Clarity Clear Urine pH 6.0 pH (4.8-9.5) Urine Specific [place] 1.004 Urine Protein Negative mg/dL (NEGATIVE) Urine Glucose (UA) Negative mg/dL (NEGATIVE) Urine Ketones Negative mg/dL (NEGATIVE) Urine Blood Negative (NEGATIVE) Urine Nitrite Negative (NEGATIVE) Urine Bilirubin Negative (NEGATIVE) Urine Urobilinogen Negative mg/dL (0.2-1.9) Urine Leukocyte Esterase Negative (NEGATIVE) Urine RBC <1 /HPF (0-2/HPF) Urine WBC <1 /HPF (0-5/HPF) Urine Squamous Epithelial Cells Few /LPF (</=FEW) Urine Bacteria Negative /HPF (NONE-FEW) Urine Mucus None /HPF (NONE-FEW) Toxicology Test 08/12/18 16:27 08/12/18 17:30 Salicylates Level < 10 mg/L Salicylate Last Dose Date unk Acetaminophen Level < 10 ug/ml Serum Alcohol 335 mg/dl Urinalysis Test 08/12/18 17:30 Urine Color Straw Urine Clarity Clear Urine pH 6.0 pH (4.8-9.5) Urine Specific [place] 1.004 Urine Protein Negative mg/dL (NEGATIVE) Urine Glucose (UA) Negative mg/dL (NEGATIVE) Urine Ketones Negative mg/dL (NEGATIVE) Urine Blood Negative (NEGATIVE) Urine Nitrite Negative (NEGATIVE) Urine Bilirubin Negative (NEGATIVE) Urine Urobilinogen Negative mg/dL (0.2-1.9) Urine Leukocyte Esterase Negative (NEGATIVE) Urine RBC <1 /HPF (0-2/HPF) Urine WBC <1 /HPF (0-5/HPF) Urine Squamous Epithelial Cells Few /LPF (</=FEW) Urine Bacteria Negative /HPF (NONE-FEW) Urine Mucus None /HPF (NONE-FEW) ED Course/Re-evaluation ED Course Patient discharged this morning from behavioral health return without call intoxication. He does not appear to have other complicating issues at this time. We'll readmit to [facility] behavioral [facility] for detox. Decision to Disposition Date: Aug 12, 2018 Decision to Disposition Time: 17:18 Depart Departure Latest Vital Signs Vital Signs Date Time Temp Pulse Resp B/P (MAP) Pulse Ox O2 Delivery O2 Flow Rate FiO2 08/12/18 17:49 101 88 08/12/18 17:30 122/90 (101) 08/12/18 16:06 98.7 16 Room Air Impression: Primary Impression: Alcohol use disorder, severe, dependence Condition: Condition Unchanged Disposition: XFER TO [facility] EZE HUSSEIN MD Aug 12, 2018 15:56
[2018-08-12 16:40] LABS: PLATELET COUNT, AUTOMATED 307 K/uL (150-450)
[2018-08-12 17:30] VITALS: BP 122/90
[2018-08-12] MEDS ORDERED: LITHOBID PO (20:33)
== END 2018-08-12 18:02 ==
LOC: ER 16:16
DX: F10.20 Alcohol dependence, uncomplicated (principal)
CPT/HCPCS: 36415; 80305; 80320; 80329; 81001; 82040; 82247; 82310; 82374; 82435; 82565; 82947; 83690; 84075; 84132; 84155; 84295; 84450; 84460; 84520; 85025; 99284

== ENCOUNTER 2018-08-12 17:52 | Inpatient (IN) | payer MEDICARE, MEDICAID ==
[~2018-08-12] VITALS: Ht 182.9 cm; Wt 104.3 kg
[2018-08-12] MEDS ORDERED: MAG HYD/AL HYD/SIMETH 30ML UDC PO PRN (18:05)
[2018-08-12 18:20] VITALS: BP 110/75
[2018-08-12] MEDS ORDERED: ASPIRIN 325 MG TAB PO ONE (19:30)
[2018-08-12] MEDS ORDERED: PANTOPRAZOLE SOD 20 MG TABEC PO ONE (19:30)
--- NOTE | 2018-08-12 19:41 | EKG ---
FACILITY: [facility] PATIENT NAME: TIP WELLS : [id number] MR: [id number] V: [id number] EXAM DATE: ORDERING PHYSICIAN: BERNARDO GARCIA TECHNOLOGIST: DIMA Test Reason : CP Blood Pressure : / mmHG Vent. Rate : 100 BPM Atrial Rate : 100 BPM P-R Int : 148 ms QRS Dur : 100 ms QT Int : 346 ms P-R-T Axes : 042 013 003 degrees QTc Int : 446 ms Normal sinus rhythm Incomplete right bundle branch block Cannot rule out Anterior infarct , age undetermined Abnormal ECG No previous ECGs available Confirmed by INA BARAHONA ([id number]) on 08/13/2018 6:26:22 AM Referred By: Confirmed By:INA BARAHONA
[2018-08-12] MEDS ORDERED: DIAZEPAM 10 MG TAB PO PRN (20:20)
[2018-08-12] MEDS ORDERED: LITHOBID PO (20:33)
[2018-08-12] MEDS: DIAZEPAM 10 MG TAB PO PRN ×2 (20:35→21:48)
[2018-08-13 04:15] VITALS: BP 150/103
[2018-08-13] MEDS: DIAZEPAM 10 MG TAB PO PRN ×4 (04:19→10:25)
[2018-08-13 07:50] VITALS: BP 138/94
[2018-08-13] MEDS: THIAMINE HCL 100 MG TAB PO SCH (09:06)
[2018-08-13] MEDS: MULTIVITAMINS TAB PO SCH (09:06)
[2018-08-13] MEDS: FOLIC ACID 1 MG TAB PO SCH (09:07)
[2018-08-13] MEDS: LITHIUM CARBONATE 300 MG CAP PO SCH ×2 (12:37→21:34)
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
[2018-08-13] MEDS: QUEtiapine FUM 100 MG TAB PO SCH (21:34)
[2018-08-14] MEDS: MULTIVITAMINS TAB PO SCH (08:50)
[2018-08-14] MEDS: FOLIC ACID 1 MG TAB PO SCH (08:50)
[2018-08-14] MEDS: THIAMINE HCL 100 MG TAB PO SCH (08:50)
[2018-08-14] MEDS: LITHIUM CARBONATE 300 MG CAP PO SCH ×2 (08:51→20:02)
[2018-08-14 09:17] VITALS: BP 113/89
[2018-08-14] MEDS ORDERED: NALTREXONE HCL 50 MG TAB PO SCH (11:50)
[2018-08-14] MEDS ORDERED: LIT300CAP PO (16:43)
[2018-08-14] MEDS ORDERED: NALT50TA15 PO (16:45)
[2018-08-14] MEDS ORDERED: QUET100T29 PO ×2 (16:47→17:00)
--- NOTE | 2018-08-14 17:57 | BHS Progress Note ---
S - Subjective Progress Notes Subjective Pt seen in conference room. Pt feeling better, feels more mood-stable, slept well with 300 mg of seroquel last night, denies feeling oversedated this am. Denies n/v/d. Withdrwal sx's have resolved, we will dc the ciwa. Pt would like to start naltrexone, so this was ordered. He has been on it in the past and understands risks of drinking, also risk that opiate pain meds would be ineffective. Pt wants to discharge home tomorrow and follow up at [facility], he feels with better mood stability and with naltrexone on board, along with attending AA meetings, he will do well. We did encourage rehab as our best recommendation. I spoke with Dr. Mack about pt's recent chest pain and abnormal EKG. We will plan on discharge tomorrow early am, then pt will go directly to have an exercise treadmill test with [employer]. Results will go to his new LMD, Dr. Ferreira, with whom he has appointment next week. Suicidal Ideation: None Homicidal Ideation: None S - Objective Physical Exam Vital Signs Vital Signs 08/13/18 08/14/18 07:50 09:17 Temp 98.3 Pulse 116 Resp 20 B/P (MAP) 113/89 (97) Pulse Ox 96 O2 Delivery Room Air O2 Flow Rate 1.0 Muscle Strength and Tone: WNL Gait and Station: Steady [facility] Medications Reviewed: Side Effects, Benefits of Medication, Risks Allergies Reviewed: Yes Mental Status Exam General Appearance: Casual, Well Groomed, Good Eye Contact, Cooperative, Polite, Good Interaction Speech: Clear, Spontaneous, Normal Rate, Normal Rhythm, Normal Volume, Normal Tone Mood: Euthymic Affect: Calm, Neutral Thought Process: Organized, Logical, Goal Directed Thought Content: No Suicidal Ideation, No Homicidal Ideation, No Delusions, No Auditory Halllucinations, No Visual Hallucinations, No Thought Broadcasting, No Ideas of Reference, No Obsessions, No Compulsions, No Other Sensorium: Clear Cognition: Alert & Oriented-Person, Alert & Oriented-Place, Alert & Oriented- Time, Pnovx-Uapngzik-Schyewyqn Memory: Immediate, Recent, Remote Intelligence: Average Insight Judgment: Fair S Assessment and Plan Smsj-tj-Hsgv Encounter Date: Aug 14, 2018 Jegd-om-Qlja Encounter Time: 10:00 [facility] Plan: Admit to Unit, Necessary Precautions, Individual/Group Therapy, Admin/Titrate Meds, Educate Patient Tobacco Medications: Not Appropriate Condition Multpiple Antipsychotics Used: No Problems: (1) Bipolar disorder, mixed (2) Alcohol abuse Status: Acute (3) Alcohol withdrawal Status: Resolved (4) Alcohol use disorder, severe, dependence Status: Chronic BERNARDO GARCIA MD Aug 14, 2018 17:57
[2018-08-14 19:38] VITALS: BP 136/84
[2018-08-14] MEDS: QUEtiapine FUM 100 MG TAB PO SCH (20:02)
--- NOTE | 2018-08-14 23:00 | NUR ---
Note from [id number], Patient up in tv room with spouse at start of shift for visit. Pleasant visit per both patient and spouse. Spouse left without incident. Patient requested snack and verbalized plan for am d/c and stress test. Reminded of NPO status after MN which patient verbalizes understanding. Patient placed telephone call with spouse for approximately 45mins, then went to room "to try to sleep." In pleasant mood and appropriate interaction with staff. Patient able to fall asleep without difficulties.
[2018-08-15 06:08] VITALS: BP 134/15
--- NOTE | 2018-08-15 16:15 | BHS Discharge Summary ---
[facility] Discharge Summary Fnju-oy-Tioq Encounter Date: Aug 15, 2018 Nufx-xz-Sxte Encounter Time: 07:00 Reason-Hosp/Final Diag (DSM-V): (1) Alcohol use disorder, severe, dependence Status: Chronic Hospital Course & Plan: CHIEF COMPLAINT "I did not make it hardly even 24 hours". HISTORY OF PRESENT ILLNESS This is the third inpatient admission within the past week for this 42-year-old man who has an alcohol use disorder. He has had two previous admissions this past week for alcohol detox and both times he was discharged home and relapsed within a day and returned to the hospital. This time he was discharged on . He says he went home, he attended an AA meeting, but that night he was experiencing manic symptoms and his confirmed this. He was ramped up, talking fast, he was restless. He could not calm himself down. His speech was pressured. He was experiencing racing thoughts. He could not sleep. He was up until 4:30 in the morning. He may have been hallucinating. He thought his , Natalie, was his daughter Goldie. The next morning after only about 3 hours of sleep, he did get up and started working around the house, taking out the trash, and then he went over to the [employer] to work on finding a job. While at the library, he left and went out and bought a pint of alcohol and drank it. Apparently, then someone at the library contacted police because he was making a lot of noise and the police encouraged him to come to the hospital. He called his and his decided that he should return to the hospital because of his relapse. His today describes how he did take his lithium and Seroquel the night that he was discharged, but she and he both feel that it simply was not helping. The patient is now admitted to detox again and we will be talking with him about our recommendation that he go straight from the hospital to an inpatient rehab. The patient has a lot of ambivalence regarding rehab because he and his have 5 young children and he feels that he is n eeded at home. HOSPITAL COURSE Pt was admitted to [facility] and detoxed successfully using valium per [facility] protocol-- duration of withdrawal was brief. We increased his lithium to 300 q am and 900 q hs, and we also increased seroquel to 300 q hs. Med changes were well tolerated. We recommended in patient rehab strongly, but he preferred to try outpatient instead, so we added naltrexone 50 q am to assist with cravings. He had one episode of chest pain and at that time troponins were negative. EKG showed mild abnormalities (see below). Dr. Mack recommended a stress test. We were able to schedule that for the same morning immediately after discharge. He was discharged in stable condition to his stress test. He will follow up at [facility] and with DR. Ferreira for his medical follow-up. His psychiatric meds and labs will be done at [facility]. His TSH was very mildly elevated but t3 and t4 were normal-- he will have this followed along with routine lithium labs. (2) Bipolar disorder, mixed (3) Alcohol abuse Status: Acute (4) Alcohol withdrawal Status: Resolved Mental Status Exam General Appearance: Casual, Well Groomed, Good Eye Contact, Cooperative, Polite, Good Interaction Speech: Clear, Spontaneous, Normal Rate, Normal Rhythm, Normal Volume, Normal Tone Mood: Euthymic Affect: Calm, Neutral Thought Process: Organized, Logical, Goal Directed Thought Content: No Suicidal Ideation, No Homicidal Ideation, No Delusions, No Auditory Halllucinations, No Visual Hallucinations, No Thought Broadcasting, No Ideas of Reference, No Obsessions, No Compulsions, No Other Sensorium: Clear Cognition: Alert & Oriented-Person, Alert & Oriented-Place, Alert & Oriented- Time, Lnxjn-Znixxgvj-Npicaxmxd Memory: Immediate, Recent, Remote Intelligence: Average Insight Judgment: Fair Departure Item Value Date Time Free Triiodothyronine 3.1 pg/mL 08/13/18 0000 Free Thyroxine 0.97 ng/dl 08/13/18 0000 Troponin I < 0.012 ng/ml 08/12/18 2230 Troponin I < 0.012 ng/ml 08/12/18 1944 [place] Level 0.6 mmol/L 08/13/18 0000 White Blood Count 8.1 k/uL 08/15/18 1442 Red Blood Count 4.50 M/uL 08/15/18 1442 Hemoglobin 12.7 g/dL L 08/15/18 1442 Hematocrit 39.7 % L 08/15/18 1442 Mean Corpuscular Volume 88.2 fL 08/15/18 1442 Mean Corpuscular Hemoglobin 28.3 pg 08/15/18 1442 Mean Corpuscular Hemoglobin Concent 32.1 g/dL 08/15/18 1442 Red Cell Distribution Width 16.0 % H 08/15/18 1442 Platelet Count 313 K/uL 08/15/18 1442 Sodium Level 142 mmol/L 08/15/18 1442 Potassium Level 3.9 mmol/L 08/15/18 1442 Chloride Level 110 mmol/L H 08/15/18 1442 Carbon Dioxide Level 22 mmol/L 08/15/18 1442 Blood Urea Nitrogen 12 mg/dl 08/15/18 1442 Creatinine 1.20 mg/dl 08/15/18 1442 Glomerular Filtration Rate Calc > 60.0 08/15/18 1442 Random Glucose 88 mg/dl 08/15/18 1442 Calcium Level 8.8 mg/dl 08/15/18 1442 Magnesium Level 2.3 mg/dl H 08/15/18 1442 Total Bilirubin 0.3 mg/dl 08/15/18 1442 Aspartate Amino Transf (AST/SGOT) 60 U/L H 08/15/18 1442 Alanine Aminotransferase (ALT/SGPT) 109 U/L H 08/15/18 1442 Alkaline Phosphatase 57 U/L 08/15/18 1442 Troponin I < 0.012 ng/ml 08/12/18 2230 Total Protein 7.4 g/dl 08/15/18 1442 Albumin 4.3 g/dl 08/15/18 1442 Amylase Level < 30 U/L 07/31/18 0836 Lipase 76 U/L 08/12/18 1627 Thyroid Stimulating Hormone (TSH) 5.04 uIU/ml H 08/06/18 1415 Free Thyroxine 0.97 ng/dl 08/13/18 0000 Free Triiodothyronine 3.1 pg/mL 08/13/18 0000 Urine Color Straw 08/12/18 1730 Urine Clarity Clear 08/12/18 1730 Urine pH 6.0 pH 08/12/18 1730 Urine Specific [place] 1.004 08/12/18 1730 Urine Protein Negative mg/dL 08/12/18 1730 Urine Glucose (UA) Negative mg/dL 08/12/18 1730 Urine Ketones Negative mg/dL 08/12/18 1730 Urine Blood Negative 08/12/18 1730 Urine Nitrite Negative 08/12/18 1730 Urine Bilirubin Negative 08/12/18 1730 Urine Urobilinogen Negative mg/dL 08/12/18 1730 Urine Leukocyte Esterase Negative 08/12/18 1730 Urine RBC <1 /HPF 08/12/18 1730 Urine Squamous Epithelial Cells Few /LPF 08/12/18 1730 Urine WBC <1 /HPF 08/12/18 1730 Urine Bacteria Negative /HPF 08/12/18 1730 Urine Mucus None /HPF 08/12/18 1730 Salicylates Level < 10 mg/L 08/15/18 1442 Salicylate Last Dose Date unknown 08/15/18 1442 Urine Opiates Screen Negative 08/12/18 1730 Acetaminophen Level < 10 ug/ml 08/15/18 1442 Urine Barbiturates Screen Negative 08/12/18 1730 Ur Tricyclic Antidepressants Screen Negative 08/12/18 1730 Urine Phencyclidine Screen Negative 08/12/18 1730 Urine Amphetamines Screen Negative 08/12/18 1730 Urine Benzodiazepines Screen Positive 08/12/18 1730 [place] Level 0.6 mmol/L 08/13/18 0000 Urine Cocaine Screen Negative 08/12/18 1730 Urine Cannabinoids Screen Negative 08/12/18 1730 Serum Alcohol 279 mg/dl 08/15/18 1442 EKG PATIENT NAME: TIP WELLS : [id number] MR: [id number] V: [id number] EXAM DATE: ORDERING PHYSICIAN: BERNARDO GARCIA TECHNOLOGIST: Test Reason : CP Blood Pressure : / mmHG Vent. Rate : 100 BPM Atrial Rate : 100 BPM P-R Int : 148 ms QRS Dur : 100 ms QT Int : 346 ms P-R-T Axes : 042 013 003 degrees QTc Int : 446 ms Normal sinus rhythm Incomplete right bundle branch block Cannot rule out Anterior infarct , age undetermined Abnormal ECG No previous ECGs available Confirmed by INA BARAHONA ([id number]) on 08/13/2018 6:26:22 AM Referred By: Confirmed By:INA BARAHONA Condition: Improved Discharge to: Home Discharge Instructions Home Meds Reported Medications Quetiapine Fumarate (SEROQUEL) 100 Mg Tablet, 300 MG PO QHS 08/14/18 Naltrexone Hcl (NALTREXONE HCL) 50 Mg Tablet, 50 MG PO QAM 08/14/18 [place] Carbonate (LITHIUM CARBONATE) 300 Mg Cap, 300 MG PO QAM, CAP 08/14/18 [place] Carbonate (LITHIUM CARBONATE) 300 Mg Tabcr, 900 MG PO QHS 08/12/18 Ascorbic Acid/Multivit-Min (Emergen-C 1,000 mg Packet) 1,000 Mg Effpowdpkt, 1000 MG PO QAM 07/31/18 Discontinued Reported Medications Thiamine Mononitrate (VITAMIN B-1) 100 Mg Tablet, 100 MG PO DAILY 08/11/18 Folic Acid (FOLIC ACID) 1 Mg Tablet, 1 MG PO QDAY, TAB 08/11/18 Multivitamin With Minerals (MEN'S ONE DAILY) 1 Each Tablet, 1 EACH PO QDAY 07/31/18 Multpiple Antipsychotics Used: No Diet: Regular Activity: As Tolerated Special Instructions: Take medications as prescribed. Follow up with outpatient provider for medication management. Abstain from alcohol & all illicit substances. Follow up with outpatient therapy. Follow up with AA. Utilize your AA Sponsor. Follow up with cardiac stress test on 08.15.18. Call Crisis Line should symptoms return. BERNARDO GARCIA MD Aug 15, 2018 16:15
== END 2018-08-15 06:50 | disposition home or self-care (01) | DRG 897 ==
LOC: BHS 17:52
PROVIDERS: ADMIT Psychiatry & Neurology Psychiatry; ATTEND Psychiatry & Neurology Psychiatry
DX: F10.230 Alcohol dependence with withdrawal, uncomplicated (principal); F31.64 Bipolar disorder, current episode mixed, severe, with psychotic features; Z81.8 Family history of other mental and behavioral disorders; Z81.1 Family history of alcohol abuse and dependence; Z56.0 Unemployment, unspecified; Z73.3 Stress, not elsewhere classified; Z60.8 Other problems related to social environment
CPT/HCPCS: 36415; 80178; 80305; 80320; 80329; 81001; 82040; 82247; 82310; 82374; 82435; 82565; 82947; 83690; 84075; 84132; 84155; 84295; 84439; 84450; 84460; 84481; 84484; 84520; 85025; 93005; 99284

== ENCOUNTER 2018-08-15 14:03 | Emergency (ER) | payer MEDICARE, MEDICAID ==
--- NOTE | 2018-08-15 14:11 | ER Report ---
History and Physical Time Seen By MD: 14:11 HPI/ROS CHIEF COMPLAINT: Intoxication HISTORY OF PRESENT ILLNESS: Patient is a 42-year-old male with a history of alcoholism here after several recurrences of alcohol relapse. Patient admits to drinking approximately 500 mL of hand antiseptic ethyl alcohol. Patient denies other illicit ingestions. Patient is afebrile at time of evaluation, hemodynamically stable REVIEW OF SYSTEMS: Constitutional: No fever, no chills. Eyes: No discharge. ENT: No sore throat. Cardiovascular: No chest pain, no palpitations. Respiratory: No cough, no shortness of breath. Gastrointestinal: No abdominal pain, no vomiting. Genitourinary: No hematuria. Musculoskeletal: No back pain. Skin: No rashes. Neurological: Slurred speech, alcohol intoxication Psychiatric: Admitted substance abuse, denies suicidal or homicidal ideations Allergies: Coded Allergies: No Known Drug Allergies (Unverified , 08/12/18) Per patient Home Meds Reported Medications Quetiapine Fumarate (SEROQUEL) 100 Mg Tablet, 300 MG PO QHS 08/14/18 Naltrexone Hcl (NALTREXONE HCL) 50 Mg Tablet, 50 MG PO QAM 08/14/18 [place] Carbonate (LITHIUM CARBONATE) 300 Mg Cap, 300 MG PO QAM, CAP 08/14/18 [place] Carbonate (LITHIUM CARBONATE) 300 Mg Tabcr, 900 MG PO QHS 08/12/18 Hx Smoking: Yes Smoking Status: Former Smoker Exposure to Second Hand Smoke?: No Hx Substance Use Disorder: Yes Hx Alcohol Use: Yes (1-1.5 gallon of Gin) Constitutional Physical Exam General Appearance: The patient is alert, has no immediate need for airway protection and no signs of toxicity. Intoxicated, slurring speech Eyes: Pupils equal and round no pallor or injection. ENT, Mouth: Mucous membranes are moist. Respiratory: There are no retractions, lungs are clear to auscultation. Cardiovascular: Regular rate and rhythm. Gastrointestinal: Abdomen is soft and non tender, no masses, bowel sounds normal. Neurological: No focal neurologic findings Skin: Warm and dry, no rashes. Musculoskeletal: Neck is supple non tender. Extremities are nontender, nonswollen and have full range of motion. DIFFERENTIAL DIAGNOSIS: After history and physical exam differential diagnosis was considered for alcohol intoxication, polysubstance abuse, depression Medical Decision Making Data Points Laboratory Hematology Test 08/15/18 14:42 Red Blood Count 4.50 M/uL (4.00-5.60) Mean Corpuscular Volume 88.2 fL (80.0-96.0) Mean Corpuscular Hemoglobin 28.3 pg (26.0-33.0) Mean Corpuscular Hemoglobin Concent 32.1 g/dL (32.0-36.0) Red Cell Distribution Width 16.0 % (11.5-14.5) Mean Platelet Volume 7.0 fL (7.2-11.1) Neutrophils (%) (Auto) 68.7 % (39.4-72.5) Lymphocytes (%) (Auto) 21.2 % (17.6-49.6) Monocytes (%) (Auto) 6.6 % (4.1-12.4) Eosinophils (%) (Auto) 2.4 % (0.4-6.7) Basophils (%) (Auto) 1.1 % (0.3-1.4) Nucleated RBC Relative Count (auto) 0.1 /100WBC Neutrophils # (Auto) 5.5 K/uL (2.0-7.4) Lymphocytes # (Auto) 1.7 K/uL (1.3-3.6) Monocytes # (Auto) 0.5 K/uL (0.3-1.0) Eosinophils # (Auto) 0.2 K/uL (0.0-0.5) Basophils # (Auto) 0.1 K/uL (0.0-0.1) Nucleated RBC Absolute Count (auto) 0.00 K/uL Sodium Level 142 mmol/L (137-145) Potassium Level 3.9 mmol/L (3.5-5.0) Chloride Level 110 mmol/L (98-107) Carbon Dioxide Level 22 mmol/L (22-30) Blood Urea Nitrogen 12 mg/dl (9-21) Creatinine 1.20 mg/dl (0.66-1.25) Glomerular Filtration Rate Calc > 60.0 Random Glucose 88 mg/dl (75-110) Calcium Level 8.8 mg/dl (8.4-10.2) Magnesium Level 2.3 mg/dl (1.7-2.2) Total Bilirubin 0.3 mg/dl (0.2-1.3) Aspartate Amino Transf (AST/SGOT) 60 U/L (0-35) Alanine Aminotransferase (ALT/SGPT) 109 U/L (0-56) Alkaline Phosphatase 57 U/L (0-126) Total Protein 7.4 g/dl (6.3-8.2) Albumin 4.3 g/dl (3.5-5.0) Thyroid Stimulating Hormone (TSH) 7.02 uIU/ml (0.46-4.68) Salicylates Level < 10 mg/L Salicylate Last Dose Date unknown Acetaminophen Level < 10 ug/ml Serum Alcohol 279 mg/dl Chemistry Test 08/15/18 14:42 White Blood Count 8.1 k/uL (4.5-11.0) Red Blood Count 4.50 M/uL (4.00-5.60) Hemoglobin 12.7 g/dL (14.0-18.0) Hematocrit 39.7 % (42.0-52.0) Mean Corpuscular Volume 88.2 fL (80.0-96.0) Mean Corpuscular Hemoglobin 28.3 pg (26.0-33.0) Mean Corpuscular Hemoglobin Concent 32.1 g/dL (32.0-36.0) Red Cell Distribution Width 16.0 % (11.5-14.5) Platelet Count 313 K/uL (150-450) Mean Platelet Volume 7.0 fL (7.2-11.1) Neutrophils (%) (Auto) 68.7 % (39.4-72.5) Lymphocytes (%) (Auto) 21.2 % (17.6-49.6) Monocytes (%) (Auto) 6.6 % (4.1-12.4) Eosinophils (%) (Auto) 2.4 % (0.4-6.7) Basophils (%) (Auto) 1.1 % (0.3-1.4) Nucleated RBC Relative Count (auto) 0.1 /100WBC Neutrophils # (Auto) 5.5 K/uL (2.0-7.4) Lymphocytes # (Auto) 1.7 K/uL (1.3-3.6) Monocytes # (Auto) 0.5 K/uL (0.3-1.0) Eosinophils # (Auto) 0.2 K/uL (0.0-0.5) Basophils # (Auto) 0.1 K/uL (0.0-0.1) Nucleated RBC Absolute Count (auto) 0.00 K/uL Glomerular Filtration Rate Calc > 60.0 Calcium Level 8.8 mg/dl (8.4-10.2) Magnesium Level 2.3 mg/dl (1.7-2.2) Total Bilirubin 0.3 mg/dl (0.2-1.3) Aspartate Amino Transf (AST/SGOT) 60 U/L (0-35) Alanine Aminotransferase (ALT/SGPT) 109 U/L (0-56) Alkaline Phosphatase 57 U/L (0-126) Total Protein 7.4 g/dl (6.3-8.2) Albumin 4.3 g/dl (3.5-5.0) Thyroid Stimulating Hormone (TSH) 7.02 uIU/ml (0.46-4.68) Salicylates Level < 10 mg/L Salicylate Last Dose Date unknown Acetaminophen Level < 10 ug/ml Serum Alcohol 279 mg/dl Toxicology Test 08/15/18 14:42 Salicylates Level < 10 mg/L Salicylate Last Dose Date unknown Acetaminophen Level < 10 ug/ml Serum Alcohol 279 mg/dl ED Course/Re-evaluation ED Course Patient is a 42-year-old male here with recurrent episode of intoxication after drinking approximately 500 mL of hand shoder filler which included ethyl alcohol. Patient was slurring his speech, visibly intoxicated. Patient had recently been discharged from behavioral health services for the same. Denies suicidal or homicidal ideations. Patient's alcohol level was 279. Patient was admitted to behavioral health services for further treatment. Decision to Disposition Date: Aug 15, 2018 Decision to Disposition Time: 17:53 Depart Departure Latest Vital Signs Impression: Primary Impression: Alcohol abuse Condition: Improved Disposition: XFER TO [facility] Patient Instructions: Abuse of Alcohol (ED), Alcohol Intoxication (DC) PETAR SANCHEZ DO Aug 15, 2018 14:11
[2018-08-15 14:52] LABS: PLATELET COUNT, AUTOMATED 313 K/uL (150-450)
[2018-08-15] MEDS ORDERED: NICOTINE 21 MG/24 HR PATCH TD ONE (18:05)
[2018-08-15 18:23] VITALS: BP 138/88
== END 2018-08-15 18:25 ==
LOC: ER 14:14
DX: F10.129 Alcohol abuse with intoxication, unspecified (principal); Y90.8 Blood alcohol level of 240 mg/100 ml or more
CPT/HCPCS: 80320; 80329; 82040; 82247; 82310; 82374; 82435; 82565; 82947; 83735; 84075; 84132; 84155; 84295; 84443; 84450; 84460; 84520; 85025; 99284

== ENCOUNTER 2018-08-15 18:01 | Inpatient (IN) | payer MEDICARE, MEDICAID ==
[2018-08-15 19:20] VITALS: BP 102/74
[2018-08-15] MEDS: DIAZEPAM 10 MG TAB PO PRN ×3 (21:19→23:25)
[2018-08-15 22:31] VITALS: BP 97/60
[2018-08-16] VITALS (7 sets, daily range): BP systolic 120–136; BP diastolic 84–109
--- NOTE | 2018-08-16 05:50 | NUR ---
Patient slept fairly well after last dose of valium given, did not get out of bed for the rest of night. No s/s of distress or discomfort noted.
[2018-08-16] MEDS: NICOTINE 21 MG/24 HR PATCH TD SCH (07:56)
[2018-08-16] MEDS: THIAMINE HCL 100 MG TAB PO SCH (07:56)
[2018-08-16] MEDS: FOLIC ACID 1 MG TAB PO SCH (07:56)
[2018-08-16] MEDS: DIAZEPAM 10 MG TAB PO PRN ×9 (09:01→22:55)
[2018-08-16] MEDS: LITHIUM CARBONATE 300 MG CAP PO SCH ×2 (09:45→21:44)
[2018-08-16] MEDS: NALTREXONE HCL 50 MG TAB PO SCH (09:45)
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
[2018-08-16] MEDS: QUEtiapine FUM 100 MG TAB PO SCH (21:44)
[2018-08-17] MEDS: DIAZEPAM 10 MG TAB PO PRN (00:05)
[2018-08-17 06:27] VITALS: BP 123/95
[2018-08-17] MEDS: LITHIUM CARBONATE 300 MG CAP PO SCH ×2 (08:45→20:49)
[2018-08-17] MEDS: THIAMINE HCL 100 MG TAB PO SCH (08:45)
[2018-08-17] MEDS: NALTREXONE HCL 50 MG TAB PO SCH (08:45)
[2018-08-17] MEDS: NICOTINE 21 MG/24 HR PATCH TD SCH (08:46)
[2018-08-17] MEDS: FOLIC ACID 1 MG TAB PO SCH (08:46)
--- NOTE | 2018-08-17 13:02 | BHS Progress Note ---
BHS - Subjective Progress Notes Subjective "I feel good. I have made the commitment to go to treatment." Suicidal Ideation: None Homicidal Ideation: None BHS - Objective Physical Exam Vital Signs Current Medications Medications (Trade) Dose Ordered Sig/Brooks Route PRN Reason Start Time Stop Time Status Last Admin Dose Admin Thiamine HCl (Vitamin B-1(*) 100 Mg Tab (Or Equiv)) 100 mg QDAY PO 08/16/18 09:00 09/15/18 08:59 08/17/18 08:45 Folic Acid (Folic Acid (*) 1 Mg Tab) 1 mg QDAY PO 08/16/18 09:00 09/15/18 08:59 08/17/18 08:46 Nicotine (Nicoderm Cq(*) 21 Mg/24 Hr (Or Equiv)) 21 mg QDAY TD 08/16/18 09:00 09/15/18 08:59 08/17/18 08:46 Diazepam (Valium(*) 10 Mg Tab (Or Equiv)) 10-20 MG PRN PRN PO FOLLOW CIWA PROTOCOL 08/15/18 19:40 08/29/18 19:39 08/17/18 00:05 Berwind Carbonate (Berwind Carbonate 300 Mg Cap) 300 mg QDAY PO 08/16/18 09:00 09/15/18 08:59 08/17/18 08:45 Berwind Carbonate (Berwind Carbonate 300 Mg Cap) 900 mg QHS PO 08/16/18 21:00 09/15/18 20:59 08/16/18 21:44 Naltrexone HCl (Revia 50 Mg Tab (Or Equiv)) 50 mg QDAY PO 08/16/18 09:00 09/15/18 08:59 08/17/18 08:45 Quetiapine Fumarate (SEROquel 100 MG TAB (OR EQUIV)) 300 mg QHS PO 08/16/18 21:00 09/15/18 20:59 08/16/18 21:44 Muscle Strength and Tone: WNL Gait and Station: Steady [facility] Medications Reviewed: Side Effects, Benefits of Medication, Risks Allergies Reviewed: Yes Mental Status Exam General Appearance: Casual, Well Groomed, Good Eye Contact, Cooperative, Polite, Good Interaction; No Tearful Speech: Clear, Spontaneous, Normal Rate, Normal Rhythm, Normal Volume, Normal Tone Mood: Euthymic Affect: Full and Appropriate Thought Process: Organized, Logical, Goal Directed, Loose Associations; No Flight of Ideas Thought Content: No Suicidal Ideation, No Homicidal Ideation, No Delusions, No Auditory Halllucinations, No Visual Hallucinations, No Thought Broadcasting, No Ideas of Reference, No Obsessions, No Compulsions Sensorium: Clear Cognition: Alert & Oriented-Person, Alert & Oriented-Place, Alert & Oriented- Time, Akbrg-[id number]-Hbmndiiba Memory: Immediate, Recent, Remote Intelligence: Average Insight Judgment: Fair [facility] Assessment and Plan [id number] Encounter Date: Aug 17, 2018 [id number] Encounter Time: 11:00 [facility] Plan: Admit to Unit, Necessary Precautions, Individual/Group Therapy, Admin/Titrate Meds, Educate Patient Tobacco Medications: Not Appropriate Condition Multpiple Antipsychotics Used: No Problems: (1) Alcohol withdrawal Status: Resolved (2) Alcohol use disorder, severe, dependence Status: Chronic (3) Unspecified mood [affective] disorder Status: Chronic MIGUEL JOHNSON NP Aug 17, 2018 13:02
[2018-08-17 14:24] VITALS: BP 129/85
[2018-08-17 19:10] VITALS: BP 118/78
[2018-08-17] MEDS: QUEtiapine FUM 100 MG TAB PO SCH (20:49)
[2018-08-18 03:41] VITALS: BP 111/98
[2018-08-18 08:05] VITALS: BP 133/92
[2018-08-18] MEDS: NICOTINE 21 MG/24 HR PATCH TD SCH (08:21)
[2018-08-18] MEDS: LITHIUM CARBONATE 300 MG CAP PO SCH ×2 (08:22→20:40)
[2018-08-18] MEDS: NALTREXONE HCL 50 MG TAB PO SCH (08:22)
[2018-08-18] MEDS: FOLIC ACID 1 MG TAB PO SCH (08:22)
[2018-08-18] MEDS: THIAMINE HCL 100 MG TAB PO SCH (08:22)
[2018-08-18] MEDS: DIAZEPAM 10 MG TAB PO PRN ×4 (11:09→23:45)
--- NOTE | 2018-08-18 17:00 | NUR ---
pt appears intoxicated. Slurred and unintelligible words. motorcycle technician sitting in room with him to make sure he does not get up and fall.
[2018-08-18 17:44] VITALS: BP 100/70
--- NOTE | 2018-08-18 18:15 | NUR ---
pt continues to slur words. Discussed with Dr. Pak why he is still extremely intoxicated. Blood ETOH ordered
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
[2018-08-18] MEDS: MAG HYD/AL HYD/SIMETH 30ML UDC PO PRN (20:39)
[2018-08-18] MEDS: QUEtiapine FUM 100 MG TAB PO SCH (20:40)
[2018-08-18 20:56] VITALS: BP 118/90
--- NOTE | 2018-08-18 21:46 | NUR ---
1930 pt at desk, steady on his feet, still slurry. Agitated, is wanting to file a grievance, when asked why he states "You Know" he was unable to explain what his grievance was about. Just previously he asked to tear up his AMA letter. Tech tore it up in front of him per his request. Packing Floor Worker called, came to [facility]. He was given a grievance form instructed to fill it out. He tried to verbally tell the cheese production supervisor he was upset because he was told he would get to go to treatment and now they keep changing the dates. She will file it with proper person. Pt continues to call his and is aggressively talking to her. He also continues to be verbally hostile with staff members as well. Continue Fall Precautions.
[2018-08-19 00:58] VITALS: BP 132/96
[2018-08-19] MEDS: DIAZEPAM 10 MG TAB PO PRN ×3 (00:59→03:05)
[2018-08-19] MEDS: MAG HYD/AL HYD/SIMETH 30ML UDC PO PRN (02:29)
[2018-08-19 04:46] VITALS: BP 100/71
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
[2018-08-19] MEDS: NALTREXONE HCL 50 MG TAB PO SCH (08:37)
[2018-08-19] MEDS: LITHIUM CARBONATE 300 MG CAP PO SCH ×2 (08:37→21:02)
[2018-08-19] MEDS: FOLIC ACID 1 MG TAB PO SCH (08:37)
[2018-08-19] MEDS: THIAMINE HCL 100 MG TAB PO SCH (08:37)
[2018-08-19] MEDS: NICOTINE 21 MG/24 HR PATCH TD SCH (08:38)
[2018-08-19 08:50] VITALS: BP 113/89
[2018-08-19] MEDS ORDERED: PROMETHAZINE HCL 25 MG TAB PO ONE (10:15)
[2018-08-19 12:30] VITALS: BP 137/94
[2018-08-19 16:00] VITALS: BP 130/96
[2018-08-19] MEDS: QUEtiapine FUM 100 MG TAB PO SCH (21:02)
--- NOTE | 2018-08-20 06:40 | BHS Progress Note ---
[facility] - Subjective Progress Notes Subjective Yesterday's plan: 1. I am awaiting results of another chem panel. 2. Phenergan 25 mgs for nausea 3. Continue CIWA protocol 4. Family meeting in the am 5. Await a response from the treatment program in [place] tomorrow. Hope for discharge and transfer the following day. Chem panel unremarkable. ALT was 63. This morning, Luis affirms that he is ready to go to treatment. However, she is still having subtle cognitive problems--slurring his words a little. Thought today was Saturday instead of Saturday. Was able to do a clock face drawing test, but struggled with it a little. Could only recall one of three unrelated words after three minutes. Was able to do serial 7's from 100 however. Suicidal Ideation: None Homicidal Ideation: None [facility] - Objective Physical Exam Vital Signs 98.8, 93, 18, 121/96, 94% Allergies Reviewed: Yes Mental Status Exam General Appearance: Casual, Good Eye Contact, Cooperative, Polite, Good Interaction, Unkept Speech: Normal Rate, Normal Rhythm, Normal Volume, Slurred Mood: Euthymic Affect: Agitated Thought Process: Organized, Logical, Goal Directed Thought Content: No Suicidal Ideation, No Homicidal Ideation, No Delusions Sensorium: Clear Cognition: No Alert & Oriented-Time; Other (see history) Memory: Other (see history) Insight Judgment: Fair Result Diagram: 08/19/18 0922 [facility] Assessment and Plan [id number] Encounter Date: Aug 20, 2018 [id number] Encounter Time: 10:30 [facility] Plan: Admit to Unit, Necessary Precautions, Individual/Group Therapy, Admin/Titrate Meds, Educate Patient Tobacco Medications: Not Appropriate Condition Multpiple Antipsychotics Used: No Problems: (1) Confusional state (2) Alcohol abuse Status: Chronic (3) Alcohol intoxication Status: Resolved Condition Plan: 1. I have asked for a repeat urine drug screen 2. I have asked staff to consider the possibility that this patient may have accessed additional substances 3. I do not see a compelling reason to do further imaging of the head today but that might be something to consider if this doesn't clear and we have no other explanation 4. Reduce Seroquel to 200 mgs at bedtime. I don't think the Seroquel is causing this, but to control for that variable, I am reducing the dose to the prior level. 5. I am hoping that this may still be the persistent effects of the diazepam that Luis needed for detox, although this is not what is typical. JENY DAVE DO Aug 20, 2018 06:39
[2018-08-20 08:01] VITALS: BP 118/82
[2018-08-20] MEDS: THIAMINE HCL 100 MG TAB PO SCH (08:06)
[2018-08-20] MEDS: NICOTINE 21 MG/24 HR PATCH TD SCH (08:06)
[2018-08-20] MEDS: FOLIC ACID 1 MG TAB PO SCH (08:06)
[2018-08-20] MEDS: LITHIUM CARBONATE 300 MG CAP PO SCH ×2 (08:06→21:31)
[2018-08-20] MEDS: NALTREXONE HCL 50 MG TAB PO SCH (08:06)
[2018-08-20 12:00] VITALS: BP 121/96
[2018-08-20 17:36] VITALS: BP 126/85
[2018-08-20] MEDS ORDERED: ACETAMINOPHEN 325 MG TAB PO PRN (18:30)
[2018-08-20] MEDS ORDERED: QUEtiapine FUM 100 MG TAB PO SCH (21:00)
[2018-08-20] MEDS: MAG HYD/AL HYD/SIMETH 30ML UDC PO PRN (21:35)
[2018-08-20 21:36] VITALS: BP 120/75
[2018-08-21 03:42] VITALS: BP 125/93
[2018-08-21] MEDS: LITHIUM CARBONATE 300 MG CAP PO SCH (08:20)
[2018-08-21] MEDS: NALTREXONE HCL 50 MG TAB PO SCH (08:21)
[2018-08-21] MEDS: THIAMINE HCL 100 MG TAB PO SCH (08:21)
[2018-08-21] MEDS: FOLIC ACID 1 MG TAB PO SCH (08:21)
[2018-08-21] MEDS: NICOTINE 21 MG/24 HR PATCH TD SCH (08:22)
--- NOTE | 2018-08-22 09:23 | DISCHARGE SUMMARY ---
DATE OF ADMISSION: August 15, 2018 DATE OF DISCHARGE: August 21, 2018 ATTENDING PHYSICIAN Unique Kellogg DO FINAL DIAGNOSIS 1. Alcohol abuse disorder, severe. 2. Alcohol intoxication. 3. Persistent confusional state, improved. 4. Bipolar disorder, mixed. REASON FOR ADMISSION This patient is a 42-year old male who was discharged on the day prior to readmission, August 15, at which time he completed a stress test per recommendation. He states that after he stress test he went shopping with his and found some hand silk screen cutter. He discovered that the hand silk screen cutter had a high concentration of alcohol. He mixed the alcohol with Mountain Dew and drank it. He also reported that he had an agreement with his that if he had another relapse he would go to a residential rehab program for alcohol abuse. Arrangements have been in the works for him to enter a residential rehab in [place], [place], and this was the goal for this admission. Upon admission, he stated he felt guilty and shameful about his decision to drink the hand silk screen cutter. He rated his depression as 6 out of 10 but denied thoughts of hurting himself or others. He also reported a high level of anxiety but denied anger, symptoms of roger or psychosis. He felt that his psychiatric medications had been working well for mood stabilization, although his sleep has been sporadic. PHYSICAL EXAMINATION VITAL SIGNS: On admission, vital signs were temperature 98.3, pulse 98, blood pressure 97/60, pulse ox 91% on 0.5% oxygen per nasal cannula. Please see emergency room note for remaining physical exam. LABORATORY STUDIES On admission, hemoglobin and hematocrit are low at 39.7 and 12.7, respectively. Chem panel shows elevated chloride at 110, magnesium elevated at 2.3. AST and ALT elevated at 60 and 109. TSH is 7.02. Toxicology including salicylate, acetaminophen levels were less than 10 but serum alcohol was 279. MENTAL STATUS EXAMINATION I met with the patient on the morning of his date of discharge, August 21, 2018. At this time, he is seated, eating breakfast and in no apparent distress. He understands that the plan today is to release him to accompany his to [place], where he will be admitted to [facility] for treatment of his alcohol dependence. He is looking forward to this admission and anxious to be released. I did a more careful mental status examination this morning since he has had some residual confusion. Today, he was able to correctly state the day and the date. He is oriented to place and understands the plan as we have outlined it for him. He is alert and does not appear drowsy. His mood is positive and he says he is not depressed. Affect is consistent with expressed mood. Thought processes are logical and goal-directed with no looseness of association or flight of ideas. I could find no evidence of any psychotic thought processes and he denies any auditory or visual hallucinations. I did more detailed memory testing. I asked Luis to repeat five digits forward and backward. He was able to do this successfully but transposed one number when repeating backwards. He was able to recall one of three words after three minutes and recalled a second word with prompting. I also questioned about any other changes in neurological functioning. He denies headache, changes in vision, taste or smell. He feels no weakness in his body or incoordination. NEUROLOGICAL EXAMINATION There is no asymmetry or weakness of facial muscles. Extraocular motion is full and intact without nystagmus. Muscles of mastication are symmetrically strong. Tongue extends in the midline normally. Gait is smooth and steady with normal arm swing. The patient is able to stand with feet together and eyes closed without difficulty. He is able to extend his hands with eyes closed without drift. Strength testing shows no weakness of the upper limbs or shoulder girdle. Rapid finger movement is intact in both hands. He is able to do ceviyh-[id number]-lgwnuy smoothly without tremor or dyskinesia. TREATMENT Treatment consisted of continuing outpatient medication and once again managing detox as well as individual, group and milieu therapy. We also coordinated with [facility] to arrange for residential treatment during this admission. HOSPITAL COURSE Mr. Resendez had a difficult hospital course. When I first met the patient, on the morning August 18, I found him visiting with his and five-year old daughter but he was loud, slurring his words and ataxic. We found an empty bottle of hand silk screen cutter in his bathroom. A blood alcohol level was drawn and it was 216. Later on during the day, he continued to appear intoxicated and at 6:20 I ordered another blood alcohol level, which was 239, suggesting that he had ingested more hand silk screen cutter. We searched his room after the incident but were not able to find another bottle. He later admitted that he stole a bottle of hand silk screen cutter from an office and drank it. He admitted that he felt nauseated and "horrible" both emotionally and physically and affirmed that he wanted to get sober and go to treatment. He initially wrote a request for AMA discharge when confronted about his consumption of alcohol but he later rescinded that request. I contacted Poison Control to find out if we were to expect any toxicity from drinking hand silk screen cutter. I was reassured that they would not expect any other than the effects of the ethanol. I repeated a chem panel and Luis's ALT was 63. Luis had some residual confusion, however, after this incident. I met with him on the morning of August 20, and he was disoriented, believing that it was Saturday instead of Saturday. He was able to draw a clock fact but struggled with it a bit. He was only able to recall one of three unrelated words after three minutes but was able to do serial 7's correctly from 100. I reviewed Mr. Resendez's medications, looking for anything that might potentially cause some confusion. He was given one 10 mg dose of Diazepam on August 18 while he was intoxicated because he was so out of control and I was concerned that he might need seclusion or restraint. Following that 10 mg dose, however, he received no more sedatives. CONDITION OF PATIENT ON DISCHARGE Please see my assessment above. On the morning of August 21, Mr. Resendez is anxious to be released and enter treatment in [place]. He is considered a minimal risk to himself or others at this time, although I have some ongoing concern about the subtle persistent mental status changes. I discussed these with the patient as well as with his . They both expressed an understanding of my concerns but want to proceed with our plan to release him so that he can enter residential treatment for his alcoholism. DISPOSITION Mr. Resendez was released in the accompany of his . She is going to drive him directly to [facility] in [place] so that he can enter their program. They have a supply of medications and I continued his routine outpatient medications without change. He is also to have a lithium level and chem panel drawn in one week. DISCHARGE MEDICATIONS 1. Seroquel 300 mg at bedtime. 2. [place] carbonate 300 mg in the morning and 900 mg at night daily. 3. Naltrexone 50 mg daily. MTDD
== END 2018-08-21 08:49 | DRG 897 ==
LOC: BHS 18:01
PROVIDERS: ADMIT Nurse Practitioner Psychiatric/Mental Health; ATTEND Nurse Practitioner Psychiatric/Mental Health
DX: F10.230 Alcohol dependence with withdrawal, uncomplicated (principal); F31.9 Bipolar disorder, unspecified; F10.288 Alcohol dependence with other alcohol-induced disorder; Z62.810 Personal history of physical and sexual abuse in childhood; Y90.8 Blood alcohol level of 240 mg/100 ml or more; Z81.1 Family history of alcohol abuse and dependence; Z81.8 Family history of other mental and behavioral disorders
CPT/HCPCS: 36415; 80305; 80320; 82040; 82247; 82310; 82374; 82435; 82565; 82947; 84075; 84132; 84155; 84295; 84450; 84460; 84520; Q0169

== ENCOUNTER → 2018-08-15 | Outpatient (CLI) | payer MEDICARE, MEDICAID ==
[~2018-08-15] MED LIST changes: +LITHOBID PO; +NALT50TA15 PO; +QUET100T29 PO
--- NOTE | 2018-08-15 09:25 | RT STRESS TEST REPORT ---
FACILITY: [facility] [place] PATIENT NAME: TIP WELLS : [id number] MR: [id number] V: [id number] EXAM DATE: ORDERING PHYSICIAN: BERNARDO GARCIA TECHNOLOGIST: Nicole Acquisition Time: 2018-08-15 09:27:27 Total Exercise Time: 00:06:47 Test Indications: CHEST PAIN Medications: SEE NUCLEAR MED SHEET Protocol: NELIA 2 Max HR: 155 BPM 88% of Pred: 176 BPM Max BP: 160/085 mmHG Max Work Load: 8.2 METS Patient experienced dyspnea at low levels of exercise and developed "throat burning" at higher levels . These symptoms resolved early in recovery. EKGs did not show any significant ST-T findings. No dysrhythmias were noted. IMPRESSION: Decreased exercise tolerance. Suspect low probability of ischemia. Await Myoview images. Confirmed by JUAN LUIS MURILLO ([id number]) on 08/15/2018 9:24:50 AM Referred By: Overread By: JUAN LUIS MURILLO
--- NOTE | 2018-08-15 16:00 | RADIOLOGY IMAGING REPORT ---
FACILITY: [facility] - [place] PATIENT NAME: Luis Resendez : 1975 MR: [id number] V: [id number] EXAM DATE: ORDERING PHYSICIAN: BERNARDO GARCIA TECHNOLOGIST: Location: [facility] [place] Patient: Luis Resendez : 1975 Visit/Account:[id number] Date of Sevice: 08/15/2018 EXAMINATION: Single Isotope SPECT Imaging with Exercise and Gated SPECT Imaging DATE OF EXAMINATION: 08/15/2018 DATE OF INTERPRETATION: 08/15/2018 REQUESTING PHYSICIAN: BERNARDO GARCIA INDICATION: The patient is a 42-year-old male evaluated for chest pain. PROCEDURE: After informed consent the patient received an intravenous injection of 11.2 mCi of Tc-9 9m sestamibi followed at the appropriate time interval by rest imaging. The patient then exercised a ccording to the standard Miki protocol for 6 minutes and 47 seconds minutes achieving 8.2 METS. Res ting heart rate was 84 bpm with a peak heart rate of 155 bpm which is 88 % of maximal predicted hear t rate for age. Blood pressure at rest was 128 / 95; blood pressure during exercise was 160 / 85. T here was no chest pain during exercise. Exercise was discontinued because of dyspnea. Baseline EKG demonstrates sinus rhythm, normal tracing. There were no EKG changes of ischemia at peak exercise. Approximately one minute and 30 seconds prior to the termination of exercise, the patient received an intravenous injection of 28.9 mCi of Tc-99m sestamibi followed by stress imaging. RAW DATA: Examination of the summed raw data revealed a adequate quality study. MYOCARDIAL PERFUSION: The tomographic images demonstrate a large, severe perfusion defect in the inf erior and inferolateral wall on resting images, this defect improves with stress images. It completel y resolves on stress prone images. This makes diaphragmatic soft tissue attenuation artifact a more l ikely explanation for this defect. GATED IMAGES: The gated images demonstrate mildly reduced LV systolic function, with mild global hyp okinesis, LV ejection fraction is 47% IMPRESSION: 1. No ischemic ECG changes with exercise, no chest pain with peak stress 2. Likely normal myocardial perfusion scan with diaphragmatic attenuation artifact. 3. Mildly reduced LV systolic function; LVEF 47%. Consider echocardiography to confirm LV systolic function. 4. Based on the results of this exam, the patient appears to be at low risk for future cardiovascular events. Report Dictated By: Michael Cruz at 08/15/2018 3:46 PM Report E-Signed By: Michael Cruz at 08/15/2018 3:55 PM WSN:[id number]
== END ==
LOC: NUC 06:58
PROVIDERS: ATTEND Psychiatry & Neurology Psychiatry
DX: R07.9 Chest pain, unspecified (principal)
CPT/HCPCS: 78452; 93017; A9500

== ENCOUNTER 2018-10-22 17:31 | Emergency (ER) | payer MEDICARE, MEDICAID ==
[2018-10-22 17:32] VITALS: BP 154/116
--- NOTE | 2018-10-22 17:36 | ER Report ---
History and Physical Time Seen By MD: 17:34 HPI/ROS CHIEF COMPLAINT: Alcohol intoxication Intermediate clearance HISTORY OF PRESENT ILLNESS: 42-year-old male frequent visitor to the emergency room for alcohol abuse is been behavioral health on several occasions for alcohol abuse and alcohol intoxication earlier in the day today reportedly was in a liquor store refused to leave became combative with staff and police came became argumentative and combative with police brought here on the way to skilled nursing for clearance patient has no complaints this time is alert and oriented 4 no physical complaints REVIEW OF SYSTEMS: Respiratory: No cough, no dyspnea. Cardiovascular: No chest pain, no palpitations. Gastrointestinal: No vomiting, no abdominal pain. Musculoskeletal: No back pain. Remainder of the 14 system rev: Yes Allergies: Coded Allergies: No Known Drug Allergies (Unverified , 08/12/18) Per patient Home Meds Reported Medications Quetiapine Fumarate (SEROQUEL) 100 Mg Tablet, 300 MG PO QHS 08/14/18 Naltrexone Hcl (NALTREXONE HCL) 50 Mg Tablet, 50 MG PO QAM 08/14/18 [place] Carbonate (LITHIUM CARBONATE) 300 Mg Cap, 300 MG PO QAM, CAP 08/14/18 [place] Carbonate (LITHIUM CARBONATE) 300 Mg Tabcr, 900 MG PO QHS 08/12/18 Reviewed Nurses Notes: Yes Old Medical Records Reviewed: Yes Hx Smoking: Yes Smoking Status: Former Smoker Exposure to Second Hand Smoke?: Yes Hx Substance Use Disorder: Yes Hx Alcohol Use: Yes (1-1.5 gallon of Gin) Physical Exam General Appearance: The patient is alert, has no immediate need for airway protection and no current signs of toxicity. Positive alcohol apparently intoxicated Eyes: Pupils equal and round no injection. Respiratory: Chest is non tender, lungs are clear to auscultation. Cardiac: regular rate and rhythm [ ] Gastrointestinal: Abdomen is soft and non tender, no masses, bowel sounds normal. Musculoskeletal: Neck: Neck is supple and non tender. Extremities have full range of motion and are non tender. Skin: No rashes or lesions. Neuro examination alert and oriented 4 no focal neurological deficits able to ambulate without issue DIFFERENTIAL DIAGNOSIS: After history and physical exam differential diagnosis was considered for alcohol abuse alcohol intoxication Medical Decision Making ED Course/Re-evaluation ED Course ED clinical course patient here for skilled nursing clearance he is not suicidal or homicidal E's and admittedly intoxicated drinks dailies been seen in numerous occasions and physical implants of any kind was no physical indication for any type of further testing or imaging were released to skilled nursing for skilled nursing custody Decision to Disposition Date: October 22, 2018 Decision to Disposition Time: 17:36 Depart Departure Impression: Primary Impression: Alcohol abuse Additional Impression: Alcohol intoxication Condition: Condition Unchanged Disposition: [facility] TO SENIOR LIVING/CORRECTIONAL F Patient Instructions: Alcohol Intoxication (DC) Problem Qualifiers KAT MARIE MD October 22, 2018 17:36
== END 2018-10-22 17:42 ==
LOC: ER 17:39
DX: F10.920 Alcohol use, unspecified with intoxication, uncomplicated (principal)
CPT/HCPCS: 99281

== ENCOUNTER 2018-10-25 10:45 | Emergency (ER) | payer MEDICARE, MEDICAID ==
[2018-10-25 10:46] VITALS: BP 146/104
--- NOTE | 2018-10-25 10:53 | ER Report ---
History and Physical Time Seen By MD: 10:47 HPI/ROS CHIEF COMPLAINT: Snf clearance intoxication HISTORY OF PRESENT ILLNESS: Patient is a 42-year-old male returns emergency department again in police custody for public intoxication patient is seen here in been seen her numerous times for similar complaints he has no focal comp laints is in custody no fall or trauma no additional findings of note REVIEW OF SYSTEMS: Respiratory: No cough, no dyspnea. Cardiovascular: No chest pain, no palpitations. Gastrointestinal: No vomiting, no abdominal pain. Musculoskeletal: No back pain. Remainder of the 14 system rev: Yes Allergies: Coded Allergies: No Known Drug Allergies (Unverified , 08/12/18) Per patient Home Meds Reported Medications [place] Carbonate (LITHIUM CARBONATE) 300 Mg Cap, 300 MG PO QAM, CAP 08/14/18 [place] Carbonate (LITHIUM CARBONATE) 300 Mg Tabcr, 900 MG PO QHS 08/12/18 Discontinued Reported Medications Quetiapine Fumarate (SEROQUEL) 100 Mg Tablet, 300 MG PO QHS 08/14/18 Naltrexone Hcl (NALTREXONE HCL) 50 Mg Tablet, 50 MG PO QAM 08/14/18 Reviewed Nurses Notes: Yes Old Medical Records Reviewed: Yes Hx Smoking: Yes Smoking Status: Former Smoker Exposure to Second Hand Smoke?: Yes Hx Substance Use Disorder: Yes Hx Alcohol Use: Yes (1-1.5 gallon of Gin) Physical Exam General Appearance: The patient is alert, has no immediate need for airway protection and no current signs of toxicity. Appears intoxicated Eyes: Pupils equal and round no injection. Respiratory: Chest is non tender, lungs are clear to auscultation. Cardiac: regular rate and rhythm [ ] Gastrointestinal: Abdomen is soft and non tender, no masses, bowel sounds normal. Musculoskeletal: Neck: Neck is supple and non tender. Extremities have full range of motion and are non tender. Skin: No rashes or lesions. [ ] DIFFERENTIAL DIAGNOSIS: After history and physical exam differential diagnosis was considered for public intoxication Medical Decision Making ED Course/Re-evaluation ED Course History of a intermediate clearance publicly intoxicated physical exam is normal other than being intoxicated able to ambulate without issue discharge to police care Decision to Disposition Date: October 25, 2018 Decision to Disposition Time: 10:53 Depart Departure Impression: Primary Impression: Alcohol abuse Additional Impression: Alcohol use disorder, severe, dependence Condition: Condition Unchanged Disposition: [facility] TO ALF/CORRECTIONAL F Patient Instructions: Alcohol Intoxication (DC) Problem Qualifiers KAT MARIE MD October 25, 2018 10:53
== END 2018-10-25 10:56 ==
LOC: ER 10:55
DX: F10.220 Alcohol dependence with intoxication, uncomplicated (principal)
CPT/HCPCS: 99281

== ENCOUNTER 2018-10-27 11:44 | Emergency (ER) | payer MEDICARE, MEDICAID ==
[2018-10-27 18:26] LABS: PLATELET COUNT, AUTOMATED 248 K/uL (150-450)
[2018-10-28] MEDS ORDERED: ONDANSETRON 4 MG/2 ML VIAL IVP ONE (07:40)
[2018-10-28] MEDS ORDERED: NS(*) 0.9% 1000 ML BAG 1,000 ML IV ONE (07:40)
[2018-10-28] MEDS ORDERED: GABA-549 PO (19:43)
[2018-10-28] MEDS ORDERED: LITHOBID PO (19:43)
--- NOTE | 2018-12-23 17:12 | ER Report ---
History and Physical Time Seen By MD: 17:09 Hx. of Stated Complaint: ALCOHOL DETOX HPI/ROS CHIEF COMPLAINT: Alcohol abuse HISTORY OF PRESENT ILLNESS: 43-year-old male frequent visitor to the ER for alcohol abuse and a call intoxication returns brought in by [employer] for evaluation of alcohol abuse and detoxification patient has no additional complaints at this time REVIEW OF SYSTEMS: Respiratory: No cough, no dyspnea. Cardiovascular: No chest pain, no palpitations. Gastrointestinal: No vomiting, no abdominal pain. Musculoskeletal: No back pain. Remainder of the 14 system rev: Yes Allergies: Coded Allergies: No Known Drug Allergies (Unverified , 10/25/18) Per patient Home Meds Reported Medications Naltrexone Hcl (NALTREXONE HCL) 50 Mg Tablet, 50 MG PO QAM 10/30/18 [place] Carbonate (LITHOBID) 300 Mg Tablet.er, 900 MG PO QHS 10/30/18 Reviewed Nurses Notes: Yes Old Medical Records Reviewed: Yes Hx Smoking: Yes Smoking Status: Former Smoker Exposure to Second Hand Smoke?: Yes Hx Substance Use Disorder: Yes Hx Alcohol Use: Yes (1-1.5 gallon of Gin) Physical Exam General Appearance: The patient is alert, has no immediate need for airway protection and no current signs of toxicity. [ ] Eyes: Pupils equal and round no injection. Respiratory: Chest is non tender, lungs are clear to auscultation. Cardiac: regular rate and rhythm [ ] Gastrointestinal: Abdomen is soft and non tender, no masses, bowel sounds normal. Musculoskeletal: Neck: Neck is supple and non tender. Extremities have full range of motion and are non tender. Skin: No rashes or lesions. [ ] DIFFERENTIAL DIAGNOSIS: After history and physical exam differential diagnosis was considered for alcohol abuse alcohol intoxication Medical Decision Making Data Points Laboratory Hematology Test 10/27/18 00:00 Red Blood Count 4.88 M/uL (4.00-5.60) Mean Corpuscular Volume 86.9 fL (80.0-96.0) Mean Corpuscular Hemoglobin 27.6 pg (26.0-33.0) Mean Corpuscular Hemoglobin Concent 31.7 g/dL (32.0-36.0) Red Cell Distribution Width 16.0 % (11.5-14.5) Mean Platelet Volume 7.0 fL (7.2-11.1) Neutrophils (%) (Auto) 59.1 % (39.4-72.5) Lymphocytes (%) (Auto) 28.9 % (17.6-49.6) Monocytes (%) (Auto) 7.9 % (4.1-12.4) Eosinophils (%) (Auto) 3.0 % (0.4-6.7) Basophils (%) (Auto) 1.1 % (0.3-1.4) Nucleated RBC Relative Count (auto) 0.0 /100WBC Neutrophils # (Auto) 4.3 K/uL (2.0-7.4) Lymphocytes # (Auto) 2.1 K/uL (1.3-3.6) Monocytes # (Auto) 0.6 K/uL (0.3-1.0) Eosinophils # (Auto) 0.2 K/uL (0.0-0.5) Basophils # (Auto) 0.1 K/uL (0.0-0.1) Nucleated RBC Absolute Count (auto) 0.00 K/uL Urine Color Straw Urine Clarity Clear Urine pH 7.0 pH (4.8-9.5) Urine Specific [place] 1.005 Urine Protein Negative mg/dL (NEGATIVE) Urine Glucose (UA) Negative mg/dL (NEGATIVE) Urine Ketones Negative mg/dL (NEGATIVE) Urine Blood Negative (NEGATIVE) Urine Nitrite Negative (NEGATIVE) Urine Bilirubin Negative (NEGATIVE) Urine Urobilinogen Negative mg/dL (0.2-1.9) Urine Leukocyte Esterase Negative (NEGATIVE) Urine RBC <1 /HPF (0-2/HPF) Urine WBC 1 /HPF (0-5/HPF) Urine Squamous Epithelial Cells None /LPF (</=FEW) Urine Bacteria Negative /HPF (NONE-FEW) Urine Mucus None /HPF (NONE-FEW) Sodium Level 143 mmol/L (137-145) Potassium Level 3.4 mmol/L (3.5-5.0) Chloride Level 110 mmol/L (98-107) Carbon Dioxide Level 22 mmol/L (22-30) Blood Urea Nitrogen 17 mg/dl (9-21) Creatinine 1.50 mg/dl (0.66-1.25) Glomerular Filtration Rate Calc 50.8 Random Glucose 107 mg/dl (75-110) Calcium Level 9.2 mg/dl (8.4-10.2) Magnesium Level 2.5 mg/dl (1.7-2.2) Total Bilirubin 0.4 mg/dl (0.2-1.3) Aspartate Amino Transf (AST/SGOT) 59 U/L (0-35) Alanine Aminotransferase (ALT/SGPT) 32 U/L (0-56) Alkaline Phosphatase 62 U/L (0-126) Total Protein 7.9 g/dl (6.3-8.2) Albumin 4.6 g/dl (3.5-5.0) Thyroid Stimulating Hormone (TSH) 9.82 uIU/ml (0.46-4.68) Salicylates Level < 10 mg/L Salicylate Last Dose Date Unk Urine Opiates Screen Negative Acetaminophen Level < 10 ug/ml Urine Barbiturates Screen Negative Ur Tricyclic Antidepressants Screen Negative Urine Phencyclidine Screen Negative Urine Amphetamines Screen Negative Urine Benzodiazepines Screen Negative Urine Cocaine Screen Negative Urine Cannabinoids Screen Negative Serum Alcohol 257 mg/dl Chemistry Test 10/27/18 00:00 White Blood Count 7.3 k/uL (4.5-11.0) Red Blood Count 4.88 M/uL (4.00-5.60) Hemoglobin 13.5 g/dL (14.0-18.0) Hematocrit 42.4 % (42.0-52.0) Mean Corpuscular Volume 86.9 fL (80.0-96.0) Mean Corpuscular Hemoglobin 27.6 pg (26.0-33.0) Mean Corpuscular Hemoglobin Concent 31.7 g/dL (32.0-36.0) Red Cell Distribution Width 16.0 % (11.5-14.5) Platelet Count 248 K/uL (150-450) Mean Platelet Volume 7.0 fL (7.2-11.1) Neutrophils (%) (Auto) 59.1 % (39.4-72.5) Lymphocytes (%) (Auto) 28.9 % (17.6-49.6) Monocytes (%) (Auto) 7.9 % (4.1-12.4) Eosinophils (%) (Auto) 3.0 % (0.4-6.7) Basophils (%) (Auto) 1.1 % (0.3-1.4) Nucleated RBC Relative Count (auto) 0.0 /100WBC Neutrophils # (Auto) 4.3 K/uL (2.0-7.4) Lymphocytes # (Auto) 2.1 K/uL (1.3-3.6) Monocytes # (Auto) 0.6 K/uL (0.3-1.0) Eosinophils # (Auto) 0.2 K/uL (0.0-0.5) Basophils # (Auto) 0.1 K/uL (0.0-0.1) Nucleated RBC Absolute Count (auto) 0.00 K/uL Urine Color Straw Urine Clarity Clear Urine pH 7.0 pH (4.8-9.5) Urine Specific [place] 1.005 Urine Protein Negative mg/dL (NEGATIVE) Urine Glucose (UA) Negative mg/dL (NEGATIVE) Urine Ketones Negative mg/dL (NEGATIVE) Urine Blood Negative (NEGATIVE) Urine Nitrite Negative (NEGATIVE) Urine Bilirubin Negative (NEGATIVE) Urine Urobilinogen Negative mg/dL (0.2-1.9) Urine Leukocyte Esterase Negative (NEGATIVE) Urine RBC <1 /HPF (0-2/HPF) Urine WBC 1 /HPF (0-5/HPF) Urine Squamous Epithelial Cells None /LPF (</=FEW) Urine Bacteria Negative /HPF (NONE-FEW) Urine Mucus None /HPF (NONE-FEW) Glomerular Filtration Rate Calc 50.8 Calcium Level 9.2 mg/dl (8.4-10.2) Magnesium Level 2.5 mg/dl (1.7-2.2) Total Bilirubin 0.4 mg/dl (0.2-1.3) Aspartate Amino Transf (AST/SGOT) 59 U/L (0-35) Alanine Aminotransferase (ALT/SGPT) 32 U/L (0-56) Alkaline Phosphatase 62 U/L (0-126) Total Protein 7.9 g/dl (6.3-8.2) Albumin 4.6 g/dl (3.5-5.0) Thyroid Stimulating Hormone (TSH) 9.82 uIU/ml (0.46-4.68) Salicylates Level < 10 mg/L Salicylate Last Dose Date Unk Urine Opiates Screen Negative Acetaminophen Level < 10 ug/ml Urine Barbiturates Screen Negative Ur Tricyclic Antidepressants Screen Negative Urine Phencyclidine Screen Negative Urine Amphetamines Screen Negative Urine Benzodiazepines Screen Negative Urine Cocaine Screen Negative Urine Cannabinoids Screen Negative Serum Alcohol 257 mg/dl Toxicology Test 10/27/18 00:00 Salicylates Level < 10 mg/L Salicylate Last Dose Date Unk Urine Opiates Screen Negative Acetaminophen Level < 10 ug/ml Urine Barbiturates Screen Negative Ur Tricyclic Antidepressants Screen Negative Urine Phencyclidine Screen Negative Urine Amphetamines Screen Negative Urine Benzodiazepines Screen Negative Urine Cocaine Screen Negative Urine Cannabinoids Screen Negative Serum Alcohol 257 mg/dl Urinalysis Test 10/27/18 00:00 Urine Color Straw Urine Clarity Clear Urine pH 7.0 pH (4.8-9.5) Urine Specific [place] 1.005 Urine Protein Negative mg/dL (NEGATIVE) Urine Glucose (UA) Negative mg/dL (NEGATIVE) Urine Ketones Negative mg/dL (NEGATIVE) Urine Blood Negative (NEGATIVE) Urine Nitrite Negative (NEGATIVE) Urine Bilirubin Negative (NEGATIVE) Urine Urobilinogen Negative mg/dL (0.2-1.9) Urine Leukocyte Esterase Negative (NEGATIVE) Urine RBC <1 /HPF (0-2/HPF) Urine WBC 1 /HPF (0-5/HPF) Urine Squamous Epithelial Cells None /LPF (</=FEW) Urine Bacteria Negative /HPF (NONE-FEW) Urine Mucus None /HPF (NONE-FEW) ED Course/Re-evaluation ED Course Patient will be admitted as a voluntary to be [facility] alcohol detoxification Decision to Disposition Date: Dec 23, 2018 Decision to Disposition Time: 17:10 Depart Departure Impression: Primary Impression: Alcohol abuse Additional Impression: Alcohol use disorder, severe, dependence Condition: Condition Unchanged Disposition: XFER TO [facility] Departure Forms: Medications Reconciliation, Patient Portal Information, ER Transition Record Problem Qualifiers KAT MARIE MD Dec 23, 2018 17:12
== END 2018-10-27 14:10 ==
LOC: ER 11:44
DX: F10.20 Alcohol dependence, uncomplicated (principal)
CPT/HCPCS: 80305; 80320; 80329; 81001; 82040; 82247; 82310; 82374; 82435; 82565; 82947; 83735; 84075; 84132; 84155; 84295; 84443; 84450; 84460; 84520; 85025; 96361; 96374; 99283; J2405; J7030

== ENCOUNTER 2018-10-27 13:59 | Inpatient (IN) | payer MEDICARE, MEDICAID ==
[~2018-10-27] VITALS: Ht 182.9 cm; Wt 104.3 kg
[2018-10-27 14:27] VITALS: BP 130/88
[2018-10-27] MEDS ORDERED: MAG HYD/AL HYD/SIMETH 30ML UDC PO PRN (15:45)
[2018-10-27] MEDS ORDERED: ACETAMINOPHEN 325 MG TAB PO PRN ×2 (15:45→21:25)
[2018-10-27] MEDS: DIAZEPAM 10 MG TAB PO PRN ×3 (16:34→19:17)
[2018-10-27] MEDS ORDERED: LITHIUM CARBONATE 300 MG TABCR PO SCH (21:00)
[2018-10-27] MEDS ORDERED: LITHIUM CARBONATE 300 MG CAP PO ONE (21:25)
[2018-10-27 21:40] VITALS: BP 100/65
[2018-10-28 05:46] VITALS: BP 131/106
[2018-10-28] MEDS: LITHIUM CARBONATE 300 MG TABCR PO SCH ×2 (08:28→14:14)
[2018-10-28] MEDS: THIAMINE HCL 100 MG TAB PO SCH (08:28)
[2018-10-28] MEDS: FOLIC ACID 1 MG TAB PO SCH (08:29)
[2018-10-28] MEDS ORDERED: FOLIC ACID 1 MG TAB PO SCH (09:00)
[2018-10-28] MEDS ORDERED: THIAMINE HCL 100 MG TAB PO SCH (09:00)
[2018-10-28 09:45] VITALS: BP 152/109
[2018-10-28] MEDS: DIAZEPAM 10 MG TAB PO PRN ×4 (10:05→20:52)
[2018-10-28 14:15] VITALS: BP 131/96
[2018-10-28 19:19] VITALS: BP 135/100
[2018-10-28] MEDS ORDERED: GABA-549 PO (19:43)
[2018-10-28] MEDS ORDERED: LITHOBID PO (19:43)
[2018-10-28] MEDS ORDERED: LITHIUM CARBONATE 300 MG TABCR PO ONE (21:00)
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
[2018-10-29 06:12] VITALS: BP 119/76
[2018-10-29] MEDS: THIAMINE HCL 100 MG TAB PO SCH (08:30)
[2018-10-29] MEDS: FOLIC ACID 1 MG TAB PO SCH (08:30)
[2018-10-29] MEDS: NALTREXONE HCL 50 MG TAB PO SCH (10:35)
[2018-10-29] MEDS: MAG HYD/AL HYD/SIMETH 30ML UDC PO PRN (14:32)
--- NOTE | 2018-10-29 15:58 | [facility] Progress Note ---
[facility] - Subjective Progress Notes Subjective Pt seen in treatment team with his on speaker phone. Pt says he is feeling better today, detox is nearing completion. He is attending all groups. He reports stable mood. Tolerating lithium well without N/V/D. He is requesting to go back on naltrexone; he has not had any opiates in past week-- will start at 50 mg daily. He would like to follow up at [facility] for their IOP program, so we are working on arranging that. His continuous pulse ox last night is suspicious for possible sleep apnea, so he will need sleep study on outpatient basis. Tentative discharge in A.M. Suicidal Ideation: None Homicidal Ideation: None [facility] - Objective Physical Exam Vital Signs Vital Signs 10/28/18 10/28/18 10/29/18 05:46 19:19 06:12 Temp 98.6 Pulse 74 Resp 14 B/P (MAP) 119/76 (90) Pulse Ox 84 O2 Delivery Room Air O2 Flow Rate 2.0 Muscle Strength and Tone: WNL Gait and Station: Steady [facility] Medications Reviewed: Side Effects, Benefits of Medication, Risks Allergies Reviewed: Yes Mental Status Exam General Appearance: Casual, Good Eye Contact, Cooperative, Polite Speech: Clear, Spontaneous, Normal Rate, Normal Rhythm, Normal Volume, Normal Tone Mood: Dysthmic/Depressed Affect: Calm, Sad Thought Process: Organized, Logical, Goal Directed Thought Content: No Suicidal Ideation, No Homicidal Ideation, No Delusions, No Auditory Halllucinations, No Visual Hallucinations, No Thought Broadcasting, No Ideas of Reference, No Obsessions, No Compulsions, No Other Sensorium: Clear Cognition: Alert & Oriented-Person, Alert & Oriented-Place, Alert & Oriented- Time, Wcfck-Waiaestf-Pslsmcnae Memory: Immediate, Recent, Remote Intelligence: Average Insight Judgment: Fair Result Diagram: 10/29/18 0611 [facility] Assessment and Plan Wurm-[id number] Encounter Date: October 29, 2018 Ynrf-ay-Ntam Encounter Time: 10:30 [facility] Plan: Admit to Unit, Necessary Precautions, Individual/Group Therapy, Admin/Titrate Meds, Educate Patient Tobacco Medications: Not Appropriate Condition Multpiple Antipsychotics Used: No Problems: (1) Alcohol use disorder, severe, dependence Status: Chronic (2) Bipolar disorder, mixed BERNARDO GARCIA MD October 29, 2018 15:58
[2018-10-29] MEDS ORDERED: LITHIUM CARBONATE 300 MG TABCR PO SCH (21:00)
[2018-10-29 22:16] VITALS: BP 140/100
[2018-10-30 05:38] VITALS: BP 128/93
[2018-10-30] MEDS: THIAMINE HCL 100 MG TAB PO SCH (08:28)
[2018-10-30] MEDS: NALTREXONE HCL 50 MG TAB PO SCH (08:28)
[2018-10-30] MEDS: FOLIC ACID 1 MG TAB PO SCH (08:29)
[2018-10-30] MEDS: MAG HYD/AL HYD/SIMETH 30ML UDC PO PRN (09:27)
[2018-10-30] MEDS ORDERED: LITH300T5 PO (10:06)
[2018-10-30] MEDS ORDERED: NALT50TA15 PO (10:07)
--- NOTE | 2018-10-30 13:02 | BHS Discharge Summary ---
[facility] Discharge Summary Ytwt-el-Goxp Encounter Date: October 30, 2018 Jzfu-[id number] Encounter Time: 09:30 Reason-Hosp/Final Diag (DSM-V): (1) Alcohol use disorder, severe, dependence Status: Chronic Hospital Course & Plan: 9.82 DATE OF ADMISSION: October 27, 2018 ATTENDING PHYSICIAN Bernardo Garcia MD The patient was interviewed on October 28, 2018, at 11:30 a.m. for this history and physical. CHIEF COMPLAINT "I need help with drinking again." HISTORY OF PRESENT ILLNESS This is the fifth [facility] admission for this 42-year-old male who is here on a voluntary basis for alcohol detox. The patient was last discharged from [facility] on August 21, 2018, and he transferred at that time to [facility] in [place] for rehab program. He did stay there for about three weeks, but he left the program because he said he needed to be back working because his family, which includes his and five children, need his income. He says he did attend AA meetings and did maintain 30 days of sobriety after [facility]. The patient also has a history of bipolar disorder, and he says he was compliant with his lithium on 900 mg daily ever since his last discharge. He had also been discharged on Seroquel at bedtime, and he tells us that his asked him not to take it because she felt it was making him too sedated. About one week ago, the patient relapsed and drank a pint of hard alcohol on three separate occasions including the morning of admission. His came home and found him intoxicated, and she brought him to the Emergency Room where he was admitted to [facility] without incident. In the ER, his blood alcohol level was 257. PAST PSYCHIATRIC HISTORY This is his fifth inpatient [facility] admission. He had four admissions during the month of July 2018. The patient has a history of [facility] other [facility] for dual diagnosis in [place], [place], where he was previously living. He did have four years of sobriety while in [place] when he was attending AA regularly and was taking his bipolar medications including lithium and Seroquel regularly. He has one prior inpatient rehab in [place], and he did recently have three weeks of inpatient rehab at [facility] in [place], [place]. He denies any history of suicide attempts and is currently not in any outpatient treatment. HOSPITAL COURSE Pt was admitted to [facility] and detoxed with valium using the CIWA protocol. Detox was uncomplicated. Pt participated in all groups cooperatively and actively. We held treatment team meeting with his . He wants to participate in [facility] IOP program, and to follow up there for his lithium for bipolar disorder. Of note, his TSH was e,evated at 9.82 but T3 and T4 WNL. He was told to have this followed-- if it remains elevated after 6 weeks he will need to go on synthroid. We also did a continuous pule ox which was moderately positive for suspicion for sleep apnea-- he was given a copy of this and he will follow up with Dr. Ferreira. He was discharged in stable condition to follow up at [place]. (2) Bipolar disorder, mixed Physical Exam Latest Vital Signs Vital Signs 10/28/18 10/30/18 05:46 05:38 Temp 98.7 Pulse 63 Resp 15 B/P (MAP) 128/93 (105) Pulse Ox 95 O2 Delivery Room Air O2 Flow Rate 2.0 Mental Status Exam General Appearance: Casual, Well Groomed, Good Eye Contact, Cooperative, Polite, Good Interaction Speech: Clear, Spontaneous, Normal Rate, Normal Rhythm, Normal Volume, Normal Tone Mood: Euthymic Affect: Full and Appropriate, Calm Thought Process: Organized, Logical, Goal Directed Thought Content: No Suicidal Ideation, No Homicidal Ideation, No Delusions, No Auditory Halllucinations, No Visual Hallucinations, No Thought Broadcasting, No Ideas of Reference, No Obsessions, No Compulsions, No Other Sensorium: Clear Cognition: Alert & Oriented-Person, Alert & Oriented-Place, Alert & Oriented- Time, [id number] Memory: Immediate, Recent, Remote Intelligence: Average Insight Judgment: Fair Departure Result Diagram: 10/29/18 06 Item Value Date Time Sodium Level 138 mmol/L 10/29/18 0611 Potassium Level 5.1 mmol/L H 10/29/1811 Chloride Level 109 mmol/L H 10/29/1811 Carbon Dioxide Level 23 mmol/L 10/29/18 06 Blood Urea Nitrogen 11 mg/dl 10/29/18 0611 Creatinine 0.90 mg/dl 10/29/18610 Glomerular Filtration Rate Calc > 60.0 10/29/18610 Random Glucose 97 mg/dl 10/29/18 0611 Calcium Level 8.5 mg/dl 10/29/18 0611 Magnesium Level 2.5 mg/dl H 10/27/18 0000 Total Bilirubin 1.0 mg/dl 10/29/18 0611 Aspartate Amino Transf (AST/SGOT) 51 U/L H 10/29/18 0611 Alanine Aminotransferase (ALT/SGPT) 25 U/L 10/29/18 0611 Alkaline Phosphatase 38 U/L 10/29/18 0611 Troponin I < 0.012 ng/ml 08/12/18 2230 Total Protein 6.9 g/dl 10/29/18 0611 Albumin 3.8 g/dl 10/29/18 0611 Amylase Level < 30 U/L 07/31/18 0836 Lipase 76 U/L 08/12/18 1627 Thyroid Stimulating Hormone (TSH) 9.82 uIU/ml H 10/27/18 0000 Free Thyroxine 0.97 ng/dl 08/13/18 0000 Free Triiodothyronine 3.1 pg/mL 08/13/18 0000 Urine Color Straw 10/27/18 Urine Clarity Clear 10/27/18 Urine pH 7.0 pH 10/27/18 Urine Specific [place] 1.005 10/27/18 Urine Protein Negative mg/dL 10/27/18 Urine Glucose (UA) Negative mg/dL 10/27/18 Urine Ketones Negative mg/dL 10/27/18 Urine Blood Negative 10/27/18 Urine Nitrite Negative 10/27/18 Urine Bilirubin Negative 10/27/18 Urine Urobilinogen Negative mg/dL 10/27/18 Urine Leukocyte Esterase Negative 10/27/18 White Blood Count 7.3 k/uL 10/27/18 0000 Red Blood Count 4.88 M/uL 10/27/18 0000 Hemoglobin 13.5 g/dL L 10/27/18 Hematocrit 42.4 % 10/27/18 Mean Corpuscular Volume 86.9 fL 10/27/18 0000 Mean Corpuscular Hemoglobin 27.6 pg 10/27/18 0000 Mean Corpuscular Hemoglobin Concent 31.7 g/dL L 10/27/18 0000 Red Cell Distribution Width 16.0 % H 10/27/18 0000 Platelet Count 248 K/uL 10/27/18 0000 Salicylates Level < 10 mg/L 5/6/19 0000 Salicylate Last Dose Date Unk 10/27/18 Urine Opiates Screen Negative 10/27/18 Acetaminophen Level < 10 ug/ml 10/27/18 Urine Barbiturates Screen Negative 10/27/18 Ur Tricyclic Antidepressants Screen Negative 10/27/18 Urine Phencyclidine Screen Negative 10/27/18 Urine Benzodiazepines Screen Negative 10/27/18 Urine Amphetamines Screen Negative 10/27/18 [place] Level 0.6 mmol/L 08/13/18 Urine Cocaine Screen Negative 10/27/18 Urine Cannabinoids Screen Negative 10/27/18 Serum Alcohol 257 mg/dl 10/27/18 Condition: Improved Discharge to: Home Discharge Instructions Home Meds Reported Medications Naltrexone Hcl (NALTREXONE HCL) 50 Mg Tablet, 50 MG PO QAM 10/30/18 [place] Carbonate (LITHOBID) 300 Mg Tablet.er, 900 MG PO QHS 10/30/18 Discontinued Reported Medications Gabapentin (GABAPENTIN) 300 Mg Capsule, 300 MG PO QDAY, CAPSULE 10/28/18 [place] Carbonate (LITHIUM CARBONATE) 300 Mg Cap, 300 MG PO QAM, CAP 08/14/18 Multpiple Antipsychotics Used: No Diet: Regular Activity: As Tolerated Special Instructions: Abstain from alcohol. Take medications as prescribed. Follow up with outpatient provider for medication management. Show provider the attached results of our overnight pulse oximeter test. Follow up with outpatient therapy. Join AA. Obtain an AA Sponsor & utilize them. Call Crisis Line or return to the ER should symptoms return. BERNARDO GARCIA MD October 30, 2018 13:02
== END 2018-10-30 10:24 | disposition home or self-care (01) | DRG 897 ==
LOC: BHS 13:59 → UNDOADMIN 14:00 → BHS 14:00 → INTOOBSV 14:00 → OBSVTOIN 14:00 → BHS 17:54
PROVIDERS: ADMIT Psychiatry & Neurology Psychiatry; ATTEND Psychiatry & Neurology Psychiatry
DX: F10.230 Alcohol dependence with withdrawal, uncomplicated (principal); F31.60 Bipolar disorder, current episode mixed, unspecified; Y90.8 Blood alcohol level of 240 mg/100 ml or more; Z91.14 Patient's other noncompliance with medication regimen; Z81.8 Family history of other mental and behavioral disorders; Z81.1 Family history of alcohol abuse and dependence; Z62.810 Personal history of physical and sexual abuse in childhood; Z62.811 Personal history of psychological abuse in childhood
CPT/HCPCS: 36415; 82040; 82247; 82310; 82374; 82435; 82565; 82947; 84075; 84132; 84155; 84295; 84450; 84460; 84520

== ENCOUNTER 2018-10-30 19:37 | Emergency (ER) | payer MEDICARE, MEDICAID ==
[~2018-10-30 19:37] MED LIST changes: +GABA-549 PO; +LITH300T5 PO
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
== END 2018-10-30 20:13 | disposition home or self-care (01) ==
LOC: ER 19:46
DX: F10.929 Alcohol use, unspecified with intoxication, unspecified (principal)
CPT/HCPCS: 99281